=== PATIENT | female | born 1990 | race Caucasian/White ===

== ENCOUNTER 2023-05-18 16:28 | Outpatient (REF) | payer OTHER, SELFPAY ==
[2023-05-26 09:42] LABS: Codeine, Ur NEGATIVE; Hydrocodone, Ur NEGATIVE; Hydromorphone, Ur NEGATIVE; Morphine, Ur NEGATIVE; Norhydrocodone, Ur NEGATIVE; Noroxycodone, Ur NEGATIVE; Oxycodone, Ur NEGATIVE; Oxymorphone, Ur NEGATIVE
== END 2023-05-18 16:29 | disposition home or self-care (01) ==
LOC: HO.HHCLNP 16:28
PROVIDERS: Visit Provider Registered Nurse
DX: Z13.89 Encounter for screening for other disorder (principal)
CPT/HCPCS: 80346; 80365; G0480

== ENCOUNTER 2023-07-05 18:40 | Outpatient (REF) | payer OTHER, SELFPAY ==
[2023-07-05 19:16] LABS: Appearance Urine Clear; Color Urine Yellow; Glucose Urine UA Negative (Negative); Leukocyte Esterase Urine Moderate (2+) (Negative); Nitrite Urine Negative (Negative); PH 6.5 (5.0-9.0); UMIC TRIGGER UACC YES; Urine Blood Negative (Negative); Urine Ketones Negative (Negative); Urine Protein Negative (Neg-Trace)
[2023-07-05 19:45] LABS: Bacteria Urine None Seen (None Seen); Hyaline Casts Urine 0-2 /LPF (0-2); RBC Urine 0-2 /HPF (0-2); WBC Urine 0-5 /HPF (0-5)
[2023-07-07 21:34] LABS: C. trachomatis RNA TMA NOT DETECTED (NOT DETECTED); N. gonorrhoeae RNA TMA NOT DETECTED (NOT DETECTED)
== END 2023-07-05 18:41 | disposition home or self-care (01) ==
LOC: HO.HHCLNP 18:40
PROVIDERS: Visit Provider Registered Nurse
DX: R30.0 Dysuria (principal); N89.8 Other specified noninflammatory disorders of vagina
CPT/HCPCS: 36415; 81001; 81513; 87491; 87591

== ENCOUNTER 2023-08-24 11:13 | Outpatient (REF) | payer OTHER, SELFPAY ==
[2023-08-24 15:40] LABS: CT PCR DETECTED (Not Detect.); NG PCR NOT DETECTED (Not Detect.)
== END 2023-08-24 11:14 | disposition home or self-care (01) ==
LOC: HO.HHCL 11:13
PROVIDERS: Visit Provider Internal Medicine
DX: N89.8 Other specified noninflammatory disorders of vagina (principal); R82.90 Unspecified abnormal findings in urine
CPT/HCPCS: 0353U; 36415; 81513; 87086

== ENCOUNTER 2023-09-21 19:26 | Outpatient (REF) | payer OTHER, SELFPAY ==
[2023-09-22 09:26] LABS: BV Int Neg Control Negative (Negative); BV Int Pos Control Positive (Positive)
== END 2023-09-21 19:27 | disposition home or self-care (01) ==
LOC: HO.HHCLNP 19:26
PROVIDERS: Internal Medicine; Visit Provider Student in an Organized Health Care Education/Training Program
DX: N89.8 Other specified noninflammatory disorders of vagina (principal)
CPT/HCPCS: 87480; 87510; 87660

== ENCOUNTER 2023-11-20 15:43 | Outpatient (REF) | payer OTHER, SELFPAY ==
[2023-11-20 17:34] LABS: MANUAL DIFF FLAG NO
[2023-11-20 18:11] LABS: Basophils Percent Auto 0.3 % (0-2); Eosinophils Absolute Auto 0.1 X10*3/uL (0.0-0.4); Eosinophils Percent Auto 0.9 % (0-4); Hematocrit 35.4 % (37.0-47.0); Imm Gran Abs Auto 0.02 X10*3/uL (0.00-0.03); Imm Gran Pct Auto 0.2 % (0.0-0.4); Lymphocytes Absolute Auto 2.8 X10*3/uL (1.2-4.9); Mean Corpuscular HGB Conc 31.1 g/dl (31.0-35.0); Mean Corpuscular Hemoglobin 25.9 pg (27.0-33.0); Mean Corpuscular Volume 83.3 fL (80.0-98.0); Mean Platelet Volume 9.7 fL (9.4-12.3); Monocytes Absolute Auto 0.7 X10*3/uL (0.1-1.2); Monocytes Percent Auto 7.2 % (2-11); Neutrophils Absolute Auto 5.5 x10*3/uL (2.0-8.3); Neutrophils Percent Auto 60.4 % (45-73); Platelet Count 502 X10*3/uL (160-400); Red Blood Count 4.25 X10*6/uL (4.20-5.50); Red Cell Distribution Width 15.3 % (11.0-16.0); White Blood Count 9.1 X10*3/uL (4.8-10.8)
[2023-11-20 18:14] LABS: Alanine Aminotransferase 12 U/L (0-31); Albumin Level 4.4 g/dL (3.5-5.0); Alkaline Phosphatase 73 U/L (39-117); Anion Gap 11 (12-20); Aspartate Amino Transferase 15 U/L (5-31); Bilirubin Total 0.2 mg/dL (0.0-1.0); Blood Urea Nitrogen 10 mg/dL (9-16); Calcium 9.6 mg/dL (8.4-10.2); Carbon Dioxide 27 mmol/L (22-29); Chloride 105 mmol/L (96-108); Estimated Glomerular Filt Rate > 60; Glucose Random 91 mg/dL (60-115); Iron 14 mcg/dL (30-160); Percent Iron Saturation 4 % (15-50); Potassium 3.6 mmol/L (3.3-5.1); Sodium 139 mmol/L (135-145); Total Iron Binding Capacity 367 mcg/dL (228-428); Total Protein 8.1 g/dL (6.5-8.0); Unsaturated Iron Binding 353 ug/dL
[2023-11-20 18:29] LABS: Ferritin 11 ng/mL (10-122)
--- NOTE | 2023-11-23 11:30 | HE.ONCSEC ---
welcome letter sent
== END 2023-11-20 15:44 | disposition home or self-care (01) ==
LOC: HO.HHCL 15:43
PROVIDERS: Visit Provider Student in an Organized Health Care Education/Training Program
DX: I26.99 Other pulmonary embolism without acute cor pulmonale (principal); Z79.01 Long term (current) use of anticoagulants
CPT/HCPCS: 36415; 80053; 82728; 83540; 85025

== ENCOUNTER → 2023-12-22 09:09 | Outpatient (BNV) | payer OTHER, SELFPAY | PROVIDERS: PCP Student in an Organized Health Care Education/Training Program; Visit Provider Internal Medicine Medical Oncology | DX: I26.99 Other pulmonary embolism without acute cor pulmonale (principal); Z79.01 Long term (current) use of anticoagulants | CPT/HCPCS: 99202; 99204; 99213 ==

== ENCOUNTER → 2023-12-27 13:05 | Outpatient (REF) | payer OTHER, SELFPAY ==
--- NOTE | 2023-12-27 13:08 | CA_ITS ---
Transthoracic Echocardiogram Patient (Last, First, Middle): Radha Marcus M Gender: Female Date of : 1990 Age: 33 Procedure Date: 12/27/2023 Procedure Type: Transthoracic Echocardiogram Location: OP Height: 160.02 cm Weight: 72.58 kg BSA: 1.76 m2 Heart Rate: bpm BP: 106 / 62 mmHg Supervisor Personnel Clerks: KAVYA Referring MD: Fatmata Moran MD Symptoms: Pulmonary Embolism ,unspecified chronicity.. Study Quality: Fair ECG Rhythm: Sinus Conclusions: - The left ventricular systolic function is normal. The calculated ejection fraction is 61% by biplane method. - No obvious valvular pathology seen on this study. Findings Left Ventricle Normal left ventricular cavity size. There is normal left ventricular wall thickness. The left ventricular systolic function is normal. The calculated ejection fraction is 61% by biplane method. There is no evidence of regional wall motion abnormalities. Diastolic function is normal for age. LV peak GLS -19.4%. Right Ventricle Normal right ventricular cavity size and systolic function. Atria Both atria are normal in size. Aortic Valve There is a normal trileaflet aortic valve. There is no aortic valve stenosis. There is no aortic valve regurgitation. Mitral Valve The mitral valve appears normal. There is trace mitral valve regurgitation. There is no mitral valve stenosis. Pulmonic Valve The pulmonic valve is likely normal. Tricuspid Valve Normal tricuspid valve structure. There is trace tricuspid valve regurgitation. There is no evidence of pulmonary hypertension. Great Vessels The asc aorta and aortic arch are normal in size. Venous The inferior vena cava is normal in size and collapses greater than 50% with inspiration. Pericardium/Pleural There is no evidence of pericardial effusion. Prior Study Comparison No prior study available for comparison. Recommendations, Care & Conclusions No obvious valvular pathology seen on this study. Measurements 2D Linear Measurements IVSd: 0.63 0.6-0.9/0.6-1.0 cm LVIDd: 5.05 3.9-5.3/4.2-5.9 cm LVIDd Index: 2.87 2.4-3.2/2.2-3.1 cm/m2 LVIDs: 3.39 2.0-3.6 cm LVPWd: 0.68 0.7-1.1 cm LA Diam: 2.70 2.7-3.8/3.0-4.0 cm LAIDs Index: 1.53 1.5-2.3 cm/m2 LV Mass: 133.61 67-162/88-224 g LV Mass Index: 75.92 43-95/49-115 g/m2 LVOT Diam: 2.00 3.0+(-)1.3 cm 2D Systolic Function EF 4C: 60.20 >55% EF 2C: 61.80 >55% EF BiP: 61.30 >55% Mitral Valve MV Pk E: 0.95 MV PK A: 0.67 MV Decel Time: 262.00 E/A: 1.40 E'Lateral: 11.90 E'Medial: 10.30 E/E' Med: 9.20 E/E' Lat: 8.00 PHT: 77.00 MVA PHT: 2.86 Decel [place]: 3.63 Aortic Valve AoV Pk Lalo: 1.53 AoV Mn Lalo: 1.09 AoV VTI: 0.33 AoV Pk Grad: 9.00 Aov Mn Grad: 5.00 SHASHA Cont.VTI: 1.93 LVOT LVOT Pk Lalo: 0.93 LVOT Mn Lalo: 0.66 LVOT VTI: 0.21 LVOT Pk Grad: 3.00 LVOT Mn Grad: 2.00 LVOT Diam: 2.00 LVOT Area: 3.14 Diastolic Function MV Pk E: 0.95 MV Pk A: 0.67 E/A: 1.40 E'Medial: 10.30 E/E' Med: 9.20 E' Laterial: 11.90 E/E' Lat: 8.00 Right Ventricle TAPSE (mm): 25.60 TVS' Lalo: 13.80 Tricuspid Valve TR Pk Lalo: 1.75 TR Pk Grad: 12.00 RA Press: 3.00 RVSP: 15.00 Great Vessels Aorta Sinus of Valsalva: 2.73 2.0-3.[address] [place]: 1.84 1.7-3.4 cm Ao Asc: 2.30 2.1-3.4 cm Ao Arch: 2.20 Updated in Other Vendor System with Status of Final Waqar Powell MD electronically signed on 12/29/2023 2:29:43 PM with status of Final
== END ==
LOC: HO.CARD 13:05
PROVIDERS: PCP Student in an Organized Health Care Education/Training Program; Visit Provider Student in an Organized Health Care Education/Training Program
DX: I26.99 Other pulmonary embolism without acute cor pulmonale (principal)
CPT/HCPCS: 93306; 93356

== ENCOUNTER → 2023-12-27 13:08 | Outpatient (BNV) | payer OTHER, SELFPAY | PROVIDERS: PCP Student in an Organized Health Care Education/Training Program; Visit Provider Internal Medicine | DX: I26.99 Other pulmonary embolism without acute cor pulmonale (principal) | CPT/HCPCS: 93306; 93356 ==

== ENCOUNTER 2024-01-16 14:50 | Outpatient (REF) | payer OTHER, SELFPAY ==
[2024-01-19 10:47] LABS: Alphahydroxymidazolam,GCMS Ur NEGATIVE; Alphahydroxytriazolam, GCMS Ur NEGATIVE; Alprazolam, GCMS Urine NEGATIVE; Aminoclonazepam, GCMS Urine NEGATIVE; Flurazepam Metabolite,GCMS Ur NEGATIVE; Lorazepam GCMS Urine NEGATIVE; Nordiazepam, GCMS Urine NEGATIVE; Oxazepam, GCMS Urine NEGATIVE; Temazepam, GCMS Urine NEGATIVE
== END 2024-01-16 14:51 | disposition home or self-care (01) ==
LOC: HO.LNP 14:50
PROVIDERS: Visit Provider Student in an Organized Health Care Education/Training Program
DX: M25.561 Pain in right knee (principal); M25.562 Pain in left knee; G89.29 Other chronic pain
CPT/HCPCS: 80346

== ENCOUNTER 2024-04-08 10:13 | Outpatient (REF) | payer OTHER, SELFPAY ==
[2024-04-08 10:59] LABS: MANUAL DIFF FLAG NO
[2024-04-08 11:09] LABS: Basophils Percent Auto 0.6 % (0-2); Eosinophils Absolute Auto 0.1 X10*3/uL (0.0-0.4); Hematocrit 35.2 % (37.0-47.0); Hemoglobin 10.7 g/dl (12.0-16.0); Imm Gran Abs Auto 0.01 X10*3/uL (0.00-0.03); Imm Gran Pct Auto 0.2 % (0.0-0.4); Lymphocytes Absolute Auto 1.5 X10*3/uL (1.2-4.9); Lymphocytes Percent Auto 31.4 % (20-40); Mean Corpuscular HGB Conc 30.4 g/dl (31.0-35.0); Mean Corpuscular Hemoglobin 24.3 pg (27.0-33.0); Mean Corpuscular Volume 79.8 fL (80.0-98.0); Mean Platelet Volume 9.9 fL (9.4-12.3); Monocytes Absolute Auto 0.4 X10*3/uL (0.1-1.2); Monocytes Percent Auto 7.9 % (2-11); Neutrophils Absolute Auto 2.8 x10*3/uL (2.0-8.3); Neutrophils Percent Auto 58.9 % (45-73); Platelet Count 297 X10*3/uL (160-400); Red Blood Count 4.41 X10*6/uL (4.20-5.50); Red Cell Distribution Width 15.7 % (11.0-16.0); White Blood Count 4.8 X10*3/uL (4.8-10.8)
[2024-04-08 11:16] LABS: D Dimer High Sensitivity 197 NG/ML
[2024-04-08 11:19] LABS: Estimated Average Glucose 105 mg/dL; Hemoglobin A1c % 5.3 % (<6.0)
[2024-04-08 11:37] LABS: Syphilis Screen Nonreactive (Nonreactive)
[2024-04-08 11:43] LABS: HBS Num1 > 1000.00 mIU/mL (0-7.99); HBsAGNum1 0.24 S/CO (0.00-0.99); HIV AB/AG Nonreactive (Nonreactive); HIV Num 1 0.06 S/CO (0.00-0.99); Hepatitis B Core Antibody Nonreactive (Nonreactive); Hepatitis B Surface Antigen Negative (Negative); ~Hepatitis B Surface Antibody REACTIVE (Nonreactive); ~Hepatitis C Antibody Nonreactive (Nonreactive)
[2024-04-08 12:03] LABS: Alanine Aminotransferase 11 U/L (0-31); Albumin Level 4.4 g/dL (3.5-5.0); Alkaline Phosphatase 71 U/L (39-117); Anion Gap 12 (12-20); Aspartate Amino Transferase 15 U/L (5-31); Bilirubin Total 0.2 mg/dL (0.0-1.0); Blood Urea Nitrogen 12 mg/dL (9-16); Calcium 9.3 mg/dL (8.4-10.2); Carbon Dioxide 24 mmol/L (22-29); Chloride 107 mmol/L (96-108); Cholesterol 154 mg/dL (<200); Estimated Glomerular Filt Rate > 60; Glucose Random 88 mg/dL (60-115); HDL Cholesterol 44 mg/dL (>40); Iron 20 mcg/dL (30-160); LDL Cholesterol Calculated 99 mg/dL (<100); Percent Iron Saturation 5 % (15-50); Potassium 3.9 mmol/L (3.3-5.1); Sodium 139 mmol/L (135-145); Total Iron Binding Capacity 368 mcg/dL (228-428); Total Protein 7.7 g/dL (6.5-8.0); Triglycerides 56 mg/dL (<150); Unsaturated Iron Binding 348 ug/dL
[2024-04-08 12:26] LABS: Ferritin 6 ng/mL (10-122); TSH reflex Free T4 0.77 uIU/mL (0.32-4.0)
[2024-04-08 13:14] LABS: CT PCR NOT DETECTED (Not Detect.); NG PCR NOT DETECTED (Not Detect.)
== END 2024-04-08 10:14 | disposition home or self-care (01) ==
LOC: HO.HHCL 10:13
PROVIDERS: Internal Medicine Medical Oncology; Visit Provider Student in an Organized Health Care Education/Training Program
DX: Z00.00 Encounter for general adult medical examination without abnormal findings (principal); I26.99 Other pulmonary embolism without acute cor pulmonale; Z13.1 Encounter for screening for diabetes mellitus
CPT/HCPCS: 36415; 80053; 80061; 82728; 83036; 83540; 84443; 85025; 85027; 85379; 86704; 86706; 86780; 86803; 87340; 87389; 87491; 87591

== ENCOUNTER 2024-04-10 09:46 | Outpatient (REF) | payer OTHER, SELFPAY ==
--- NOTE | ~2024-04-10 | XR_ITS ---
EXAMINATION: XR KNEE RIGHT XR KNEE LEFT CLINICAL INFORMATION: Chronic bilateral knee pain COMPARISON: None TECHNIQUE: Right knee, 3 views Left knee, 3 views FINDINGS: Left knee: Bones, joints and soft tissues have a normal appearance. No fracture, subluxation or joint effusion. Right knee: Bones, joints and soft tissues have a normal appearance. No fracture, subluxation or joint effusion. XR/XR knee RT 3V IMPRESSION: Normal radiographic examination of each knee.
--- NOTE | ~2024-04-10 | XR_ITS ---
EXAMINATION: XR KNEE RIGHT XR KNEE LEFT CLINICAL INFORMATION: Chronic bilateral knee pain COMPARISON: None TECHNIQUE: Right knee, 3 views Left knee, 3 views FINDINGS: Left knee: Bones, joints and soft tissues have a normal appearance. No fracture, subluxation or joint effusion. Right knee: Bones, joints and soft tissues have a normal appearance. No fracture, subluxation or joint effusion. XR/XR knee LT 3V IMPRESSION: Normal radiographic examination of each knee.
== END 2024-04-10 09:47 | disposition home or self-care (01) ==
LOC: HO.HHCX 09:46
PROVIDERS: Visit Provider Student in an Organized Health Care Education/Training Program
DX: M25.562 Pain in left knee (principal); M25.561 Pain in right knee; G89.29 Other chronic pain
CPT/HCPCS: 73562

== ENCOUNTER 2024-11-28 17:52 | Outpatient (REF) | payer OTHER, SELFPAY ==
--- OUTSIDE RECORDS SUMMARY | 2024-11-28 17:54 | XMS_ITS | Encounter Summary ---
Author Organization [employer] Address [address] [place] [address] [place] [address] Care Team Providers Care Railroad Track Mechanic Name Role Phone Anastasiya Garcia Kim BUSINESS RISK CONSULTANT Primary Care Provider +1- [phone] Fatmata Nance MD Primary Care Pro vider Jordon Rausch BUSINESS RISK CONSULTANT Unavailable Unavailable Encounter Details Date Type Department Care Team (Latest Contact Info) Description 01/07/2019 Abstract [facility] CONVERSIONS Dental, Provider, DDS Social History Tobacco Use Types Packs/Day Years Used Date Smoking Tobacco: Never Assessed Comments Unknown Sex and Gender Information Value Date Recorded Sex Assigned at Female 06/27/2022 10:18 AM EDT Legal Sex Female 10:18 AM EDT Gender Identity Female 06/27/2022 10:18 AM EDT Sexual Orientation Choose not to disclose 2021 10:18 AM EDT documented as of this encounter Plan of Treatment Upcoming Encounters Date Type Department Care Team (Late st Contact Info) Description 02/20/2025 9:00 AM EDT Office Visit [facility] MEDICINE [address] [place] [address] Fatmata Nance MD [address] [place] [address] 02/27/2025 9:00 AM EDT Clinical Support [facility] CHC MED & PEDS [address] [place] [address] Jil Rousseau, RN [address] [place] [address] 05/15/2025 1:00 PM EDT Office Visit [facility] ADULT DENTAL [address] [place] [address] Edith Hammer documented as of this encounter Visit Diagnoses Not on filedocumented in this encounter Care Teams Railroad Track Mechanic Relationship Specialty Start Date End Date Anastasiya Garcia FNP PCP - General Family Medicine 04/26/22 05/28/23 Fatmata Nance MD [address] [place] [address] PCP - General Internal Medicine 05/29/23 Jordon Rausch FNP [address] [place] [address] Nurse Practitioner Family Medicine 08/01/23 documented as of this encounter
--- OUTSIDE RECORDS SUMMARY | 2024-11-28 17:54 | XMS_ITS | Encounter Summary ---
Author Organization [employer] Address [address] [facility] 7t [place] [address] Care Team Providers Care Manhole Stripper Name Role Phone Fatmata Nance MD Primary Care Pro vider Jordon Rausch Unavailable Unavailable Reason for Visit * Reason Comments Med Refill Encounter Details Date Type Department Care Team (Late st Contact Info) Description 01/03/2024 Refill [facility] MEDICINE [address] [place] [address] Jordon Rausch FNP Posttraumatic stress disorder Social History Tobacco Use Types Packs/Day Years Used Date Smoking Tobacco: Never Passive Smoke Exposure: Never Smokeless Tobacco: Never Alcohol Use Standard Drinks/Week Comments Not Currently 0 (1 standard drink = 0.6 oz pur e alcohol) Quit Depression Answer Date Recorded Patient Health Questionnaire-9 Score 4 11/23/2023 Patient Health Questionnaire-9 Score 4 11/23/2023 Last PHQ-9: Questionnaire Data Not on file 0 11/23/2023 Housing Stability Answer Date Recorded What is your housing situation today? I have logan hensley 11/07/[address] you li ve. Do you have problems with any of the following? None of the above 11/07/2023 Food Insecurity Answer Date Recorded Within the past 12 months, y ou worried that your food would run out before you got money to buy more: Never True 11/07/2023 Within the past 12 months,th e food you bought just didn't last and you didn't have enough money to get more: Never True 07/2024 Transportation Answer Date Recorded In the past 12 months, has l ack of transportation kept you from medical appts, meetings, work or from getting things needed for daily living? No 11/07/2023 Utilities Answer Date Recorded In the past 12 months, has t he electric, gas, oil or water company threatened to shut off services in your home? No 11/07/2023 Depression Answer Date Recorded Patient Health Questionnaire-2 Score 2 11/23/2023 Comments No Sex and Gender Information Value Date Recorded [...] Description 02/20/2025 9:00 AM EDT Office Visit [facility] MEDICINE [address] [place] [address] Fatmata Nance MD [address] [place] [address] 02/27/2025 9:00 AM EDT Clinical Support [facility] CHC MED & PEDS [address] [place], [place] [phone] Jil Rousseau, RN [address] [place], [place] [phone] 05/15/2025 1:00 PM EDT Office Visit [facility] ADULT DENTAL [address] [place] [address] Edith Hammer documented as of this encounter Visit Diagnoses Diagnosis Posttraumatic stress disorder documented in this encounter Additional Health Concerns Assessment Noted Time PHQ-9 Depression Total Score: 4 11/23/19 24 3:03 PM EDT documented as of this encounter Care Teams Manhole Stripper Relationship Specialty Start Date End Date Fatmata Nance MD [address] [place] [address] PCP - General Internal Medicine 05/29/23 Jordon Rausch FNP [address] [place] [address] Nurse Practitioner Family Medicine 08/01/23 documented as of this encounter
--- OUTSIDE RECORDS SUMMARY | 2024-11-28 17:54 | XMS_ITS | Encounter Summary ---
Author Organization [employer] Address [address] [facility] 7t [place] [address] Care Team Providers Care Ground Mixer Name Role Phone Fatmata Nance MD Primary Care Pro vider Jordon Rausch Unavailable Unavailable Reason for Visit * Reason Comments Med Refill Encounter Details Date Type Department Care Team (Late st Contact Info) Description 04/07/2024 Refill [facility] MEDICINE [address] [place] [address] Jordon Rausch FNP Posttraumatic stress disorder Social History Tobacco Use Types Packs/Day Years Used Date Smoking Tobacco: Never Passive Smoke Exposure: Never Smokeless Tobacco: Never Alcohol Use Standard Drinks/Week Comments Yes 0 (1 standard drink = 0.6 oz pur e alcohol) social Depression Answer Date Recorded Patient Health Questionnaire-9 Score 0 01/18/2024 Patient Health Questionnaire-9 Score 0 01/18/2024 Last PHQ-9: Questionnaire Data Not on file 0 01/18/2024 Housing Stability Answer Date Recorded What is [...] Answer Date Recorded Patient Health Questionnaire-2 Score 0 01/18/2024 Comments No Sex and Gender Information Value [...] Description 02/20/2025 9:00 AM EDT Office Visit [facility] MEDICINE [address] [place] [address] Fatmata Nance MD [address] [place] [address] 02/27/2025 9:00 AM EDT Clinical Support [facility] CHC MED & PEDS [address] [place], [place] [phone] Jil Rousseau, RN [address] [place], [place] [phone] 05/15/2025 1:00 PM EDT Office Visit [facility] ADULT DENTAL [address] [place] [address] Edith Hammer documented as of this encounter Visit Diagnoses Diagnosis Posttraumatic stress disorder documented in this encounter Additional Health Concerns Assessment Noted Time PHQ-9 Depression Total Score: 0 01/18/20 24 3:43 PM EDT documented as of this encounter Care Teams Ground Mixer Relationship Specialty Start Date End Date Fatmata Nance MD [address] [place] [address] PCP - General Internal Medicine 05/29/23 Jordon Rausch FNP [address] [place] [address] Nurse Practitioner Family Medicine 08/01/23 documented as of this encounter
--- OUTSIDE RECORDS SUMMARY | 2024-11-28 17:54 | XMS_ITS | Encounter Summary ---
Author Organization [employer] Address [address] [facility] 7t [place] [address] Care Team Providers Care Utility Worker Woolen Mill Name Role Phone Fatmata Nance MD Primary Care Pro vider Jordon Rausch Unavailable Unavailable Encounter Details Date Type Department Care Team (Latest Contact Info) Description 11/28/2024 Travel Social History Tobacco Use Types Packs/Day Years [...] Description 02/20/2025 9:00 AM EDT Office Visit [facility] MEDICINE [address] [place] [address] Fatmata Nance MD [address] [place] [address] 02/27/2025 9:00 AM EDT Clinical Support [facility] CHC MED & PEDS 505 [place], [place] [phone] Jil Rousseau, SHARMIN 505 [place] [address] 05/15/2025 1:00 PM EDT Office Visit [facility] ADULT DENTAL [address] [place] [address] Edith Hammer documented as of this encounter Visit Diagnoses Not on filedocumented in this encounter Additional Health Concerns Assessment Noted Time PHQ-9 Depression Total Score: 0 01/18/20 24 3:43 PM EDT documented as of this encounter Care Teams Utility Worker [place] [place] Relationship Specialty Start Date End Date Fatmata Nance MD [address] [place] [address] PCP - General Internal Medicine 05/29/23 Jordon Rausch FNP [address] [place] [address] Nurse Practitioner Family Medicine 08/01/23 documented as of this encounter
--- OUTSIDE RECORDS SUMMARY | 2024-11-28 17:54 | XMS_ITS | Encounter Summary ---
Author Organization [employer] Address [address] [facility] 7t [place] [address] Care Team Providers Care It Communications Manager Name Role Phone Fatmata Nance MD Primary Care Pro vider Jordon Rausch Unavailable Unavailable Reason for Visit * Reason Comments controlled substance treatment Encounter Details Date Type Department Care Team (Latest Contact Info) Description 11/28/2024 9:30 AM EDT Clinical Support [facility] MED & PEDS [address] [place] [address] Jil Rousseau, RN [address] [place] [address] Chronic pain of both knees (Primary Dx); Long-term current use of opiate analgesic Social History Tobacco Use Types Packs/Day Years [...] your housing situation today? 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 Prescribed Tramadol 50mg Q8hr PRN & Clonazepam 1mg BID PRN. States she takes both medications only as needed. Usually takes Clonazepam at bedtime, last taken last night. Continues to deny smoking cigarettes, ETOH use and Illicit drug use. States she smokes marijuana all day - everyday and uses it for its calming effects. Denies having a medical marijuana card. Currently rates her pain a 4/10 located in bilateral knees and states medication is usually 70% effective at alleviating pain. Last PCP appt 07/11/24. Patient was f/u with Whit Rausch regularly and declines any further referrals, referred to new [facility] psych. prescriber as Jordon carrera. No questions/ concerns at this time. PASSENGER SERVICE SUPERVISOR Agreement renewed today. O: Pt currently prescribed Tramadol 50mg Q8hr PRN & Clonazepam 1mg BID PRN. IRON INSTALLER verified today.Tramadol Rx last filled on 11/25/24. Pill count performed, patient has 78, 74 expected. Clonazepam Rx last filled on 11/25/24. Pill count performed, Pt has 57 pills at this time, 53 expected. Medication is not overused by patient. UTOX completed. Positive for THC only. Sending out BZO to the lab for c onfirmation. .BPI updated today. Pain severity score of (3.5), activity interference score of (4). Previous BPI completed (04/03/24) with pain severity score of (5), activity interference score of (5).Improvement in pain management. .CARLY 7 screening done, total score 11; patient educated of ways to help deal with anxiety, also acupuncture at [facility]. A: PASSENGER SERVICE SUPERVISOR Contract Revisit: Chronic Opioid use related to pain. P: Pt to continue taking medication only as prescribed; Next PASSENGER SERVICE SUPERVISOR RV appointment scheduled for 02/27/25 @ 9am. PE with PCP 02/20/25. F/U sooner PRN. Pt verbalized understanding and agreed to plan documented in this encounter Plan of Treatment Upcoming Encounters Date Type Department Care Team (Late st Contact Info) Description 02/20/2025 9:00 AM EDT Office Visit [facility] MEDICINE [address] [place] [address] Fatmata Nance MD [address] [place] [address] 02/27/2025 9:00 AM EDT Clinical Support [facility] CHC MED & PEDS [address] [place], [place] [phone] Jil Rousseau, RN [address] [place] [address] 05/15/2025 1:00 PM EDT Office Visit [facility] ADULT DENTAL [address] [place] [address] Edith Hammer Scheduled Orders Name Type Priority Associated Diagnoses Orde r Schedule Drug Monitoring, Benzodiazepines, Quantitative, Urine Lab Routine Chronic pain of both knees Ordered: 11/28/2024 documented as of this encounter Procedures Procedure Name Priority Date/Time Associated Diagnosis Comments POCT ASH-14 URINE DRUG SCREEN Routine 11/28/2024 9:32 AM EDT Long-term current use of opiate analgesic Chronic pain of both knees documented in this encounter Results * POCT ASH-14 Urine Drug Screen (11/28/2024 9:32 AM EDT) THC Positive Urine Urine specimen obtained by clean catch procedure / Unknown 11/28/2024 9:32 AM EDT Narrative Jil Rousseau, RN - 11/28/2024 9:32 AM EDT Lot# [id number] Exp: 04-16-26 Fatmata Moran MD POINT OF CARE JAMES T ENTER/EDIT ORDERABLES Final Result documented in this encounter Visit Diagnoses Diagnosis Chronic pain of both knees- Primary Long-term current use of opiate analgesic Encounter for long-term (current) use of other medications documented in this encounter Additional Health Concerns Assessment Noted Time PHQ-9 Depression Total Score: 0 01/18/20 24 3:43 PM EDT documented as of this encounter Care Teams It Communications Manager Relationship Specialty Start Date End Date Fatmata Nance MD [address] [place] [address] PCP - General Internal Medicine 05/29/23 Jordon Rausch FNP [address] [place] [address] Nurse Practitioner Family Medicine 08/01/23 documented as of this encounter
--- OUTSIDE RECORDS SUMMARY | 2024-11-28 17:54 | XMS_ITS | Encounter Summary ---
Author Organization [employer] Address [address] [place] [address] [place] [address] Care Team Providers Care Maintenance Tech Name Role Phone Anastasiya Garcia Kim ASIC DESIGN ENGINEER Primary Care Provider +1- [phone] Fatmata Nance MD Primary Care Pro vider Jordon Rausch ASIC DESIGN ENGINEER Unavailable Unavailable Encounter Details Date Type Department Care Team (Latest Contact Info) Description 11/04/2021 Abstract [facility] CONVERSIONS Dental, Provider, DDS Social History [...] Description 02/20/2025 9:00 AM EDT Office Visit [facility] MEDICINE [address] [place] [address] Fatmata Nance MD [address] [place] [address] 02/27/2025 9:00 AM EDT Clinical Support [facility] CHC MED & PEDS [address] [place] [address] Jil Rousseau, RN [address] [place] [address] 05/15/2025 1:00 PM EDT Office Visit [facility] ADULT DENTAL [address] [place] [address] Edith Hammer documented as of this encounter Visit Diagnoses Not on filedocumented in this encounter Care Teams Maintenance Tech Relationship Specialty Start Date End Date Anastasiya Garcia FNP PCP - General Family Medicine 04/26/22 05/28/23 Fatmata Nance MD [address] [place] [address] PCP - General Internal Medicine 05/29/23 Jordon Rausch FNP [address] [place] [address] Nurse Practitioner Family Medicine 08/01/23 documented as of this encounter
--- OUTSIDE RECORDS SUMMARY | 2024-11-28 17:54 | XMS_ITS | Encounter Summary ---
Author Organization [employer] Address [address] [facility] 7t [place] [address] Care Team Providers Care Varnish Melter Helper Name Role Phone Fatmata Nance MD Primary Care Pro vider Jordon Rausch Unavailable Unavailable Encounter Details Date Type Department Care Team ([facility] st Contact Info) Description 11/28/2024 Telephone [facility] CHC MED & PEDS [address] [place] [address] Jil Rousseau, SHARMIN [address] [place] [address] Social History Tobacco Use Types Packs/Day Years [...] AM EDT documented as of this encounter Miscellaneous Notes * Telephone Encounter - Jil Rousseau RN - 11/28/2024 9:30 AM EDT .What SUGAR GRINDER Tier would you like this patient to be? Tier 1 = HIGH RISK, Monthly SUGAR GRINDER visits Tier 2 = MODerate RISK, Q3 Month visits Tier 3 = LOW RISK = Q4-6 month visits documented in this encounter Plan of Treatment Upcoming Encounters Date Type Department Care Team (Late st Contact Info) Description 02/20/2025 9:00 AM EDT Office Visit [facility] MEDICINE [address] [place] [address] Fatmata Nance MD [address] [place] [address] 02/27/2025 9:00 AM EDT Clinical Support [facility] CHC MED & PEDS [address] [place] [address] Jil Rousseau RN [address] [place] [address] 05/15/2025 1:00 PM EDT Office Visit [facility] ADULT DENTAL [address] [place] [address] Edith Hammer documented as of this encounter Visit Diagnoses Not on filedocumented in this encounter Additional Health Concerns Assessment Noted Time PHQ-9 Depression Total Score: 0 01/18/20 24 3:43 PM EDT documented as of this encounter Care Teams Varnish Melter Helper Relationship Specialty Start Date End Date Fatmata Nance MD [address] [place] [address] PCP - General Internal Medicine 05/29/23 Jordon Rausch FNP [address] [place] [address] Nurse Practitioner Family Medicine 08/01/23 documented as of this encounter
--- OUTSIDE RECORDS SUMMARY | 2024-11-28 17:54 | XMS_ITS | Encounter Summary ---
Author Organization [employer] Address [address] [facility] 7t [place] [address] Care Team Providers Care Lube Man Name Role Phone Fatmata Nance MD Primary Care Pro vider Jordon Rausch Unavailable Unavailable Reason for Visit * Reason Comments Med Refill Encounter Details Date Type Department Care Team (Late st Contact Info) Description 10/17/2024 Refill [facility] CH[facility] MED & PEDS [address] [place] [address] Abbi Stockton, ANP [address] [place] [address] Pain in right knee Social History Tobacco Use Types Packs/Day Years [...] Description 02/20/2025 9:00 AM EDT Office Visit [facility] MEDICINE [address] [place] [address] Fatmata Nance MD [address] [place] [address] 02/27/2025 9:00 AM EDT Clinical Support [facility] CHC MED & PEDS [address] [place] [address] Jil Rousseau, SHARMIN [address] [place] [address] 05/15/2025 1:00 PM EDT Office Visit [facility] ADULT DENTAL [address] [place] [address] Edith Hammer documented as of this encounter Visit Diagnoses Diagnosis Pain in right knee documented in this encounter Additional Health Concerns Assessment Noted Time PHQ-9 Depression Total Score: 0 01/18/20 24 3:43 PM EDT documented as of this encounter Care Teams Lube Man Relationship Specialty Start Date End Date Fatmata Nance MD [address] [place] [address] PCP - General Internal Medicine 05/29/23 Jordon Rausch FNP [address] [place] [address] Nurse Practitioner Family Medicine 08/01/23 documented as of this encounter
--- OUTSIDE RECORDS SUMMARY | 2024-11-28 17:54 | XMS_ITS | Encounter Summary ---
Author Organization [employer] Address [address] [place] [id number] Care Team Providers Care Form Drafter Name Role Phone Fatmata Nance MD Primary Care Pro vider Jordon Rausch Unavailable Unavailable Reason for Visit * Reason Onset Date Comments REVISING CLERK visit 06/13/2024 Encounter Details Date Type Department Care Team (Late st Contact Info) Description 06/13/2024 Telephone [facility] MEDICINE [address] [place], [place] [phone] Fatmata Nance MD [address] [place] [address] REVISING CLERK visit Social History Tobacco Use Types Packs/Day Years [...] is your housing situation today? I have logankathryn hensley 11/07/[address] you [...] encounter Miscellaneous Notes * Telephone Encounter - Ryan Morris - 06/13/2024 12:08 PM EDT TC from pt had to cancel REVISING CLERK visit scheduled on 06/19 because currently working and falls on . Pt would like to reschedule for either a Monday or documented in this encounter Plan of Treatment Upcoming Encounters Date Type Department Care Team (Late st Contact Info) Description 02/20/2025 9:00 AM EDT Office Visit [facility] MEDICINE [address] [place] [address] Fatmata Nance MD [address] [place] [address] 02/27/2025 9:00 AM EDT Clinical Support [facility] CHC MED & PEDS [address] [place] [address] Jil Rousseau, SHARMIN [address] [place] [address] 05/15/2025 1:00 PM EDT Office Visit [facility] ADULT DENTAL [address] [place] [address] Edith Hammer documented as of this encounter Visit Diagnoses Not on filedocumented in this encounter Additional Health Concerns Assessment Noted Time PHQ-9 Depression Total Score: 0 01/18/20 24 3:43 PM EDT documented as of this encounter Care Teams Form Drafter Relationship Specialty Start Date End Date Fatmata Nance MD [address] [place] [address] PCP - General Internal Medicine 05/29/23 Jordon Rausch FNP [address] [place] [address] Nurse Practitioner Family Medicine 08/01/23 documented as of this encounter
--- OUTSIDE RECORDS SUMMARY | 2024-11-28 17:54 | XMS_ITS | Encounter Summary ---
Author Organization [employer] Address [address] [place] [address] [place] [address] Care Team Providers Care Government Contracts Manager Name Role Phone Anastasiya Garcia Kim RADIOLOGY PHYSICIAN Primary Care Provider [phone] Fatmata Nance MD Primary Care Pro vider Jordon Rausch RADIOLOGY PHYSICIAN Unavailable Unavailable Encounter Details Date Type Department Care Team (Latest Contact Info) Description 06/05/2020 Abstract [facility] CONVERSIONS Dental, Provider, DDS Social [...] Description 02/20/2025 9:00 AM EDT Office Visit [facility] MEDICINE [address] [place] [address] Fatmata Nance MD [address] [place] [address] 02/27/2025 9:00 AM EDT Clinical Support [facility] CHC MED & PEDS [address] [place] [address] Jil Rousseau, RN [address] [place] [address] 05/15/2025 1:00 PM EDT Office Visit [facility] ADULT DENTAL [address] [place] [address] Edith Hammer documented as of this encounter Visit Diagnoses Not on filedocumented in this encounter Care Teams Government Contracts Manager Relationship Specialty Start Date End Date Anastasiya Garcia FNP PCP - General Family Medicine 04/26/22 05/28/23 Fatmata Nance MD [address] [place] [address] PCP - General Internal Medicine 05/29/23 Jordon Rausch FNP [address] [place] [address] Nurse Practitioner Family Medicine 08/01/23 documented as of this encounter
--- OUTSIDE RECORDS SUMMARY | 2024-11-28 17:55 | XMS_ITS | Encounter Summary ---
Author Organization [email or web address] Address [address] [place] [address] Care Team Providers Care Official Court Interpreter Name Role Phone Fatmata Nance MD Primary Care Pro vider Jordon Rausch Unavailable Unavailable Reason for Visit * Reason Onset Date Comments Med Refill 07/03/2023 Encounter Details Date Type Department Care Team (Late st Contact Info) Description 07/03/2023 Telephone [facility] MEDICINE [address] [place], [place] [phone] Fatmata Nance MD [address] [place], [place] [phone] Med Refill Social History Tobacco Use Types Packs/Day Years Used Date Smoking Tobacco: Never Passive Smoke Exposure: Never Smokeless Tobacco: Never Alcohol Use Standard Drinks/Week Comments Not Currently 0 (1 standard drink = 0.6 oz pur e alcohol) Quit Depression Answer Date Recorded Patient Health Questionnaire-9 Score 1 05/23/2023 Depression Answer Date Recorded Patient Health Questionnaire-2 Score 1 05/23/2023 Comments Unknown Sex and Gender Information Value Date Recorded Sex Assigned at Female 06/27/2022 10:18 AM EDT Legal Sex Female 10:18 AM EDT Gender Identity Female 06/27/2022 10:18 AM EDT Sexual Orientation Choose not to disclose 2021 10:18 AM EDT documented as of this encounter Miscellaneous Notes * Telephone Encounter - Mere Loco - 07/03/2023 9:29 AM EST Tc from pt requesting med refill on; traMADol (Ultram) 50 MG tablet documented in this encounter Plan of Treatment Upcoming Encounters Date Type Department Care Team (Late st Contact Info) Description 02/20/2025 9:00 AM EDT Office Visit [facility] MED[facility]INE [address] [place] [address] Fatmata Nance MD [address] [place] [address] 02/27/2025 9:00 AM EDT Clinical Support [facility] CH[facility] MED & PEDS [address] [place], [place] [phone] Jil Rousseau, SHARMIN [address] [place], [place] [phone] 05/15/2025 1:00 PM EDT Office Visit [facility] ADULT DENTAL [address] [place] [address] Edith Hammer documented as of this encounter Visit Diagnoses Not on filedocumented in this encounter Additional Health Concerns Assessment Noted Time PHQ-9 Depression Total Score: 1 05/23/20 23 8:59 AM EDT documented as of this encounter Care Teams Official Court Interpreter Relationship Specialty Start Date End Date Fatmata Nance MD [address] [place] [address] PCP - General Internal Medicine 05/29/23 Jordon Rausch FNP [address] [place] [address] Nurse Practitioner Family Medicine 08/01/23 documented as of this encounter
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
--- OUTSIDE RECORDS SUMMARY | 2024-11-28 17:55 | XMS_ITS | Encounter Summary ---
Author Organization [employer] Address [address] [facility] 7 [place] [address] Care Team Providers Care Internet Marketer Name Role Phone Anastasiya Garcia Primary Care Provider +1- [phone] Fatmata Nance MD Primary Care Pro vider Jordon Rausch Unavailable Unavailable Reason for Visit * Reason Onset Date Comments Med Refill 05/02/2023 Encounter Details Date Type Department Care Team (Late st Contact Info) Description 05/02/2023 Telephone [facility] MED[facility]INE [address] [place] [address] Anastasiya Garcia FNP [address] [place] [address] Dept [place] [address] Med Refill Social History Tobacco Use Types Packs/Day Years Used Date Smoking Tobacco: Never Passive Smoke Exposure: Never Smokeless Tobacco: Never Alcohol Use Standard Drinks/Week Comments Not Currently 0 (1 standard drink = 0.6 oz pur e alcohol) Quit Comments Unknown Sex and Gender Information Value Date Recorded Sex Assigned at Female 06/27/2022 10:18 AM EDT Legal Sex Female 10:18 AM EDT Gender Identity Female 06/27/2022 10:18 AM EDT Sexual Orientation Choose not to disclose 2021 10:18 AM EDT documented as of this encounter Miscellaneous Notes * Telephone Encounter - Megan Hernandez LPN - 05/02/2023 12:58 PM EDT Medication was sent to [facility] on 11/22/22 #90 with 1 refill to [facility] for refill. * Telephone Encounter - Nichole Garrett - 05/02/2023 11:59 AM EDT TC from pt requesting med refill for mediation lurasidone (Latuda) 60 MG tablet. documented in this encounter Plan of Treatment Upcoming Encounters Date Type Department Care Team (Late st Contact Info) Description 02/20/2025 9:00 AM EDT Office Visit [facility] MEDICINE [address] [place] [address] Fatmata Nance MD [address] [place] [address] 02/27/2025 9:00 AM EDT Clinical Support [facility] MED & PEDS [address] [place], [place] [id number] Jil Rousseau, SHARMIN [address] [place] [address] 05/15/2025 1:00 PM EDT Office Visit [facility] ADULT DENTAL [address] [place] [address] Edith Hammer documented as of this encounter Visit Diagnoses Not on filedocumented in this encounter Additional Health Concerns Assessment Noted Time PHQ-9 Depression Total Score: 2 02/22/20 23 8:58 AM EDT documented as of this encounter Care Teams Internet Marketer Relationship Specialty Start Date End Date Anastasiya Garcia FNP PCP - General Family Medicine 04/26/22 05/28/23 Fatmata Nance MD [address] [place] [id number] PCP - General Internal Medicine 05/29/23 Jordon Rausch FNP [address] [place] [id number] Nurse Practitioner Family Medicine 08/01/23 documented as of this encounter
--- OUTSIDE RECORDS SUMMARY | 2024-11-28 17:55 | XMS_ITS | Encounter Summary ---
Author Organization [employer] Address [address] [facility] 7 [place] [address] Care Team Providers Care Shop Helper Name Role Phone Anastasiya Garcia Primary Care Provider +1- [phone] Fatmata Nance MD Primary Care Pro vider Jordon Rausch Unavailable Unavailable Reason for Visit * Reason Onset Date Comments Med Refill 10/24/2022 Encounter Details Date Type Department Care Team (Late st Contact Info) Description 10/24/2022 Telephone [facility] MEDICINE [address] [place] [address] Anastasiya Garcia FNP [address] [facility] Dept [place] [address] Med Refill Social History Tobacco Use Types Packs/Day Years Used Date Smoking Tobacco: Never Smokeless Tobacco: Never Alcohol Use Standard Drinks/Week Comments Not Currently 0 (1 standard drink = 0.6 oz pur e alcohol) Quit Comments Unknown Sex and Gender Information Value Date Recorded Sex Assigned at Female 06/27/2022 10:18 AM EDT Legal Sex Female 10:18 AM EDT Gender Identity Female 06/27/2022 10:18 AM EDT Sexual Orientation Choose not to disclose 2021 10:18 AM EDT COVID-19 Exposure Response Date Recorded In the last 10 days, have yo u been in contact with someone who was confirmed or suspected to have Coronavirus/COVID-19? No / Unsure 10/26/2022 9:22 AM EST documented as of this encounter Miscellaneous Notes * Telephone Encounter - Megan Hernandez LPN - 10/24/2022 12:02 PM EST Both medications were sent to [facility] on 08/23/22 Qty: 30 with 5 refills * Telephone Encounter - Nichole Rosa - 10/24/2022 11:06 AM EST Tc from pt requesting med refill for medication lurasidone (Latuda) 60 MG tablet hydrOXYzine HCl (Atarax) 50 MG tablet documented in this encounter Plan of Treatment Upcoming Encounters Date Type Department Care Team (Late st Contact Info) Description 02/20/2025 9:00 AM EDT Office Visit [facility] MEDICINE [address] [place] [address] Fatmata Nance MD [address] [place] [address] 02/27/2025 9:00 AM EDT Clinical Support [facility] MED & PEDS [address] [place] [address] Jil Rousseau, RN [address] [place] [address] 05/15/2025 1:00 PM EDT Office Visit [facility] ADULT DENTAL [address] [place] [address] Edith Hammer documented as of this encounter Visit Diagnoses Not on filedocumented in this encounter Additional Health Concerns Assessment Noted Time PHQ-9 Depression Total Score: 4 08/23/20 22 2:48 PM EST documented as of this encounter Care Teams Shop Helper Relationship Specialty Start Date End Date Anastasiya Garcia FNP PCP - General Family Medicine 04/26/22 05/28/23 Fatmata Nance MD [address] [place] [id number] PCP - General Internal Medicine 05/29/23 Jordon Rausch FNP [address] [place] [phone] Nurse Practitioner Family Medicine 08/01/23 documented as of this encounter
--- OUTSIDE RECORDS SUMMARY | 2024-11-28 17:55 | XMS_ITS | Encounter Summary ---
Author Organization [employer] Address [address] [place] [id number] Care Team Providers Care Supervisor Pairing And Inspecting Name Role Phone Fatmata Nance MD Primary Care Pro vider Erlinda Rausch Unavailable Unavailable Reason for Visit * Reason Onset Date Comments FYI 09/13/2023 Encounter Details Date Type Department Care Team (Late st Contact Info) Description 09/13/2023 Telephone [facility] MEDICINE [address] [place], [place] [phone] Fatmata Nance MD [address] [place] [address] FYI Social History Tobacco Use Types Packs/Day Years Used Date Smoking Tobacco: Never Passive Smoke Exposure: Never Smokeless Tobacco: Never Alcohol Use Standard Drinks/Week Comments Not Currently 0 (1 standard drink = 0.6 oz pur e alcohol) Quit Depression Answer Date Recorded Patient Health Questionnaire-9 Score 4 08/24/2023 Patient Health Questionnaire-9 Score 4 08/24/2023 Last PHQ-9: Questionnaire Data Not on file 1 10/25/2022 Depression Answer Date Recorded Patient Health Questionnaire-2 Score 1 08/24/2023 Comments Unknown Sex and Gender Information Value Date Recorded Sex Assigned at Female 06/27/2022 10:18 AM EDT Legal Sex Female 10:18 AM EDT Gender Identity Female 06/27/2022 10:18 AM EDT Sexual Orientation Choose not to disclose 2021 10:18 AM EDT documented as of this encounter Miscellaneous Notes * Telephone Encounter - Madhavi Zambrano - 09/13/2023 9:52 AM EST Tc from pt states erlinda edie will be leaving soon and pt would like PCP aware for pt can still receive medication prescribed by edie. Pt does need a TP. documented in this encounter Plan of Treatment Upcoming Encounters Date Type Department Care Team (Late st Contact Info) Description 02/20/2025 9:00 AM EDT Office Visit [facility] MEDICINE [address] [place] [address] Fatmata Nance MD [address] [place] [phone] 02/27/2025 9:00 AM EDT Clinical Support [facility] MED & PEDS [address] [place] [address] Jil Rousseau, RN [address] [place] [address] 05/15/2025 1:00 PM EDT Office Visit [facility] ADULT DENTAL [address] [place] [address] Edith Hammer documented as of this encounter Visit Diagnoses Not on filedocumented in this encounter Additional Health Concerns Assessment Noted Time PHQ-9 Depression Total Score: 4 08/24/20 23 10:16 AM EST documented as of this encounter Care Teams Supervisor Pairing And Inspecting Relationship Specialty Start Date End Date Fatmata Nance MD [address] [place] [phone] PCP - General Internal Medicine 05/29/23 Erlinda Rausch FNP [address] [place] [phone] Nurse Practitioner Family Medicine 08/01/23 documented as of this encounter
--- OUTSIDE RECORDS SUMMARY | 2024-11-28 17:55 | XMS_ITS | Data Portability ---
Author Organization [facility] [employer] Address [address] [place] [phone] Care Team Providers Care Jacquard Loom Card Changer Name Role Phone HIM CCA OTHER Assessment No assessment recorded. Plan of Treatment Reminders Order Date Submit Date Provider Last Modified By Organization Details Last Modified Time Details Appointments None recorded. Lab culture, urine 2022 023 [facility] (Centralized Electronic Ordering - All Locations), Patient Can Go To The Location Of Their Choice, [id number] 16:40:03 culture, urine 2022 023 [facility] (Centralized Electronic Ordering - All Locations), Patient Can Go To The Location Of Their Choice, [id number] 14:55:29 Referral None recorded. Procedures None recorded. Surgeries None recorded. Imaging None recorded. Medication Orders Bactrim DS 800 mg-160 mg tablet 2022 023 [facility] #[id number], [address] [place], [address], 14:18:04 levofloxaci n 500 mg tablet 2022 023 [facility] #[id number], [address] [place], [address], 12:55:48 Patient TargetsNo targets recorded. Patient InstructionsNo instructions recorded. Reason for Referral None Reported. Results Created Date Observation Date Name Description Value Unit Range Abnormal Flag Note LastModifiedBy Organization Detail LastModifiedTime 03/13/2003/13/2023 URINE CULTU RE specimen description URINE Not Available [facility] (Centralized [facility] Ordering - All Locations) Patient Can Go To The Location Of Their Choice, [id number] 03/15/2023 14:55:29 03/13/2003/13/2023 URINE CULTU RE special requests NONE Not Available [facility] (Centralized Electronic Ordering - All Locations) Patient Can Go To The Location Of Their Choice, 03/15/2023 14:55:29 03/13/2003/15/2023 URINE CULTU RE culture abnormal >100, 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 This isola te was ident ified using Maldi -TOF syste m These AST resul ts were perfo rmed on the Micro scan ID and AST syste m Not Available [facility] (Centralized Electronic Ordering - All Locations) Patient Can Go To The Location Of Their Choice, 03/15/2023 14:55:29 03/13/2003/15/2023 URINE CULTU RE report status FINAL 2022 Not Available [facility] (Centralized Electronic Ordering - All Locations) Patient Can Go To The Location Of Their Choice, 03/15/2023 14:55:29 03/13/2003/15/2023 URINE CULTU RE organism ORGAN ISM >100, 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 INHIB. CONC. (MCG/M L) Not Available [facility] (Centralized Electronic Ordering - All Locations) Patient Can Go To The Location Of Their Choice, 03/15/2023 14:55:29 03/13/2003/15/2023 URINE CULTU RE amoxicillin/ clavulanic acid AMOXIC ILLIN/ CLAVUL AN SUSCEP TIBLE susceptib le Not Available [facility] (Centralized Electronic Ordering - All Locations) Patient Can Go To The Location Of Their Choice, 03/15/2023 14:55:29 03/13/2003/15/2023 URINE CULTU RE ampicillin AMPICI LLIN RESIST ANT resistant Not Available [facility] (Centralized Electronic Ordering - All Locations) Patient Can Go To The Location Of Their Choice, 03/15/2023 14:55:29 03/13/2003/15/2023 URINE CULTU RE ampicillin/s ulbactam AMPICI LLIN/S ULBACT AM SUSCEP TIBLE susceptib le Not Available [facility] (Centralized Electronic Ordering - All Locations) Patient Can Go To The Location Of Their Choice, 03/15/2023 14:55:29 03/13/2003/15/2023 URINE CULTU RE cefazolin CEFAZO MEMO SUSCEP TIBLE susceptib le Not Available [facility] (Centralized Electronic Ordering - All Locations) Patient Can Go To The Location Of Their Choice, 03/15/2023 14:55:29 03/13/2003/15/2023 URINE CULTU RE cefepime CEFEPI ME SUSCEP TIBLE susceptib le Not Available [facility] (Centralized Electronic Ordering - All Locations) Patient Can Go To The Location Of Their Choice, 03/15/2023 14:55:29 03/13/2003/15/2023 URINE CULTU RE ceftriaxone CEFTRI AXONE SUSCEP TIBLE susceptib le Not Available [facility] (Centralized Electronic Ordering - All Locations) Patient Can Go To The Location Of Their Choice, 03/15/2023 14:55:29 03/13/2003/15/2023 URINE CULTU RE ciprofloxaci n CIPROF LOXACI N SUSCEP TIBLE susceptib le Not Available [facility] (Centralized Electronic Ordering - All Locations) Patient Can Go To The Location Of Their Choice, 03/15/2023 14:55:29 03/13/2003/15/2023 URINE CULTU RE ertapenem ERTAPE NEM SUSCEP TIBLE susceptib le Not Available [facility] (Centralized Electronic Ordering - All Locations) Patient Can Go To The Location Of Their Choice, 03/15/2023 14:55:29 03/13/2003/15/2023 URINE CULTU RE gentamicin GENTAM ICIN SUSCEP TIBLE susceptib le Not Available [facility] (Centralized Electronic Ordering - All Locations) Patient Can Go To The Location Of Their Choice, 03/15/2023 14:55:29 03/13/2003/15/2023 URINE CULTU RE levofloxacin LEVOFL OXACIN SUSCEP TIBLE susceptib le Not Available [facility] (Centralized Electronic Ordering - All Locations) Patient Can Go To The Location Of Their Choice, 03/15/2023 14:55:29 03/13/2003/15/2023 URINE CULTU RE meropenem MEROPE NEM SUSCEP TIBLE susceptib le Not Available [facility] (Centralized Electronic Ordering - All Locations) Patient Can Go To The Location Of Their Choice, 03/15/2023 14:55:29 03/13/2003/15/2023 URINE CULTU RE nitrofuranto in NITROF URANTO IN SUSCEP TIBLE susceptib le Not Available [facility] (Centralized Electronic Ordering - All Locations) Patient Can Go To The Location Of Their Choice, 03/15/2023 14:55:29 03/13/2003/15/2023 URINE CULTU RE piperacillin /tazobactam PIPERA CILLIN /TAZOB AC SUSCEP TIBLE susceptib le Not Available [facility] (Centralized Electronic Ordering - All Locations) Patient Can Go To The Location Of Their Choice, 03/15/2023 14:55:29 03/13/2003/15/2023 URINE CULTU RE tetracycline TETRAC YCLINE SUSCEP TIBLE susceptib le Not Available [facility] (Centralized Electronic Ordering - All Locations) Patient Can Go To The Location Of Their Choice, 03/15/2023 14:55:29 03/13/2003/15/2023 URINE CULTU RE trimeth/sulf amethox TRIMET H/SULF AMETHO X SUSCEP TIBLE susceptib le Not Available [facility] (Centralized Electronic Ordering - All Locations) Patient Can Go To The Location Of Their Choice, 03/15/2023 14:55:29 08/17/20 23 08/17/2023 URINE CULTU RE specimen description URINE Not Available [facility] ([facility]ized [facility] Ordering - All Locations) Patient Can Go To The Location Of Their Choice, 08/18/2023 16:40:03 08/17/20 23 08/17/2023 URINE CULTU RE special requests NONE Not Available [facility] (Centralized [facility] Ordering - All Locations) Patient Can Go To The Location Of Their Choice, 08/18/2023 16:40:03 08/17/20 23 08/18/2023 URINE CULTU RE culture <10,00 0 COL/ML abnormal Not Available [facility] (Centralized Electronic Ordering - All Locations) Patient Can Go To The Location Of Their Choice, [id number] 08/18/2023 16:40:03 08/17/20 23 08/18/2023 URINE CULTU RE report status FINAL 2022 Not Available [facility] (Centralized Electronic Ordering - All Locations) Patient Can Go To The Location Of Their Choice, [id number] 08/18/2023 16:40:03 Result Notes None recorded. Medical Equipment None Reported. Allergies Allergen ID Allergen Name Allergen Category Reaction Reaction Severity Criticality Documentation Date Start Date Code Code System Note Provider Name and Address Organization Details Recorded Time 7264 ibuprofen medicatio n Not available Not available Not available 06/25/2024 5640 RxNorm Not Available [facility] 4 03:36:12 7265 morphine medicatio n Not available Not available Not available 06/25/2024 7052 RxNorm Not Available [facility] - [facility] 4 03:36:12 7266 Product containin g penicilli n (product) medicatio n Not available Not available Not available 06/25/2024 70026 8001 SNOMED Not Available [facility] 4 03:36:12 Medications Name Sig Start Date Stop Date Status Note LastModified by Organization Details LastModified Time fluconazole 150 mg tablet TAKE ONE TABLET THEN AFTER 72HRS TAKE ANOTHER TABLET active Not Available Not Available No t Available metronidazol e 0.75 % (37.5 mg/5 gram) vaginal gel INSERT 1 APPLICATORF UL VAGINALLY AT BEDTIME FOR 5 DAYS active Not Available Not Available N ot Available clonazepam 1 mg tablet TAKE 1 TABLET BY MOUTH TWICE DAILY IN THE MORNING AND AT BEDTIME NEEDED ANXIETY active Not Available Not Available No t Available hydroxyzine HCl 50 mg tablet TAKE 1/2 TABLET (25 MG) BY MOUTH EVERY TWELVE HOURS active Not Available Not Available No t Available sulfamethoxa zole 800 mg-trimethop rim 160 mg tablet TAKE 1 TABLET BY MOUTH EVERY 12 HOURS active Not Available Not Available No t Available doxycycline monohydrate 100 mg tablet PLEASE SEE ATTACHED FOR DETAILED DIRECTIONS active Not Available Not Available N ot Available tramadol 50 mg tablet TAKE 1 TABLET BY MOUTH EVERY 8 HOURS NEEDED FOR SEVERE PAIN active Not Available Not Available Not Available pantoprazole 40 mg tablet,delay ed release TAKE 1 TABLET BY MOUTH DAILY active Not Available Not Available Not Available hydroxyzine HCl 25 mg tablet TAKE 1 TABLET BY MOUTH THREE TIMES DAILY IN THE MORNING, AT NOON, AND AT BEDTIME FOR (for itching) active Not Available Not Available No t Available levofloxacin 500 mg tablet TAKE 1 TABLET BY MOUTH EVERY 24 HOURS FOR 7 DAYS active Not Available Not Available N ot Available Ventolin HFA 90 mcg/actuatio n aerosol inhaler INHALE 2 PUFFS EVERY 4 HOURS NEEDED active Not Available Not Available No t Available Flovent HFA 220 mcg/actuatio n aerosol inhaler INHALE 2 PUFFS TWICE DAILY. RINSE MOUTH AFTER USING. active Not Available Not Available No t Available lurasidone 60 mg tablet TAKE 1 TABLET BY MOUTH ONCE DAILY WITH DINNER active Not Available Not Available No t Available Asmanex HFA 200 mcg/actuatio n aerosol inhaler INHALE 2 PUFFS TWICE DAILY. RINSE MOUTH AFTER USING. active Not Available Not Available No t Available Vitals Date Recorded Body weight Body temperature Body height Heart rate Oxygen saturation Oxygen saturation in Arterial blood by Pulse oximetry Respiratory rate Systolic blood pressure Diastolic blood pressure Provider Name and Address Organization Details Last Updated DateTime 3 50174 g 97.4 [degF] 157.48 cm 80 /min 98 % 98 % 14 /min 124 mm[Hg] 84 mm[Hg] Not Available [employer] 3 12:48:59 Date Recorded Oxygen saturation Oxygen saturation in Arterial blood by Pulse oximetry Respiratory rate Heart rate Systolic blood pressure Diastolic blood pressure Provider Name and Address Organization Details Last Updated DateTime 3 99 % 99 % 16 /min 69 /min 138 mm[Hg] 72 mm[Hg] Not Available [employer] 3 14:12:01 Social History None recorded. Functional Status None recorded. Mental Status None recorded. Family History Nothing Reported. Medical History No medical history recorded. Gynecological HistoryNo gynecological history recorded. Obstetrics History GPAL:G 0 P 0 0 0 0 Past Encounters Encounter ID Performer Location Encounter Start Date Encounter Closed Date Diagnosis/Indication Diagnosis SNOMED-CT Code Diagnosis ICD10 Code Diagnosis Note [id number] Yasir Childers MD [facility] [address] [place] [phone] 03/13/2023 12:48:52 03/14/2023 10:43:44 Recurrent urinary tract infection [id number] N39.0 This 32-year-ol d female was treated for a UTI in January with Bactrim. Her symptoms resolved but recurred over the past five days with dysuria and frequency, but no fever. I ordered a U/C and treatment with Levaquin 500 mg daily for seven days. She will follow-up with her PCP. The patient agreed with this plan. [id number] Yue Garcia MD [facility] [address] [place] [phone] 08/17/2023 14:10:21 08/19/2023 17:13:51 Urinary symptoms [id number] R39.9 33 year old female being evaluated for dysuria and vaginal itching for the last 3 days. She started an OTC yeast infection cream. Patient is without fever/chil ls, or vaginal discharge. She is taking PO, and has no nausea/vom iting. Has urinary frequency and urgency similar to prior UTI's. Exam notable for normal vital signs, POC urine dip positive for leukocytes . Presentati on suggestive of likely simple cystitis, will treat with bactrim based on previous sensitivit ies, and send urine for culture. Patient to continue to use OTC topical products for potential concomitan t yeast. I have reviewed and agree with the assessment and plan as documented by the highballer. I provided real-time medical direction for this encounter and was immediatel y available to provide additional phone-base d assistance as needed. We discussed the diagnostic uncertaint y of home visits and associated risks. We discussed the need to seek care urgently/e mergently in the setting of any new or worsening symptoms. Health Concerns Section Related Observation LastModified by Organization Detai ls LastModified Time None Recorded Concern Status LastModified by Organization Details LastModified Time None Recorded Advance Directives Directive None Recorded Payers Encounter Date Sequence Insurance Name Policy Number Policy Mei Covered Member ID Mei Member ID Guarantor Name 03/13/2023 1 [facility] - DOS ON OR AFTER 2022 - DUAL ELIGIBLE - PENITENTIARY OPTIONS AND ONE CARE (MEDICARE REPLACEMENT/ADV ANTAGE - HMO) Radha Marcus [id number] Radha Marcus 08/17/2023 1 [facility] - DOS ON OR AFTER 2022 - DUAL ELIGIBLE - PENITENTIARY OPTIONS AND ONE CARE (MEDICARE REPLACEMENT/ADV ANTAGE - HMO) Radha Marcus [id number] Radha Melissa Amrit Notes Date Note Type Note Provider Name and Address Organization Details Recorded Time 03/13/2023 text/html HPI: Patient with history of GERD, PTSD,Opioid use. Treated for UTI symptoms on 02/27/23. Lab culture shows> 100K Klebsiella pneumoniae, > 100K Group B strep. [facility] report order # [id number]. Completed BID Bactrim x 3 days. Now with recurrent symptoms and painful urination. Burning, frequency and vaginal itching. No fever noted. ................... ................... ................... ................... ................... ................... ................... ........ [facility] Nursing Assessment: Comments: Review request no further information needed to process visit Yasir Childers MD [address] [place] [address],[address], [place], [phone] 03/13/2023 12:56:12 08/17/2023 text/html [facility] Nurse Triage Notes (Rosemary Fulton): Reason For Request: Pt is having a some sort of urinary infection, yeast infection, she is not sure>itchiness, frequency with urination, burning with urination>no abdominal pain reported>no odor. Feels as if infection is starting. Patient Reports: Painful urination; Painful urination with or without fever; Inability to fully empty bladder Denies: Frequent and increased urination with flank pain Chief Complaints: UTI/Pyelonephritis PMH: COPD/Asthma Allergies: Ibuprofen, Morphine, Penicillin Comments: Verified identity / address Member has had symptoms of UTI since yesterday . Member has painful urination with increased frequency, no changes in color or smell. Member has has symptoms in the past. Member denies fever/ chills ................... ................... ................... ................... ................... ................... ................... ........ Hand Plug Shaper Note From Gus Zambrano: Patient complains of three days of urinary burning and increasing frequency. Patient states she suffers from chronic UTIs as well as yeast infections. Patient currently denies any nausea, vomiting, or dizziness or vaginal discharge. Patient expresses her last UTI was approximately 3 to 4 months ago. Patient denies any blood in urine. Skin warm dry and of appropriate color for ethnicity. Head and neck, free of trauma and edema. Patient breathing free and easy. Abdomen soft, nontender nondistended. Extremities, free of trauma and edema; patient exhibited steady unassisted. POC urinalysis performed, results sent to [facility]. Culture performed at [facility] orders, to be dropped off at local laboratory. Prescription to patient? s pharmacy of choice to be made by [facility]. Red flags discussed with patient. Patient encouraged to seek medical attention should she become further symptomatic. Hand Plug Shaper Allergies: Ibuprofen, Morphine, Penicillin ................... ................... ................... ................... ................... ................... ................... ........ Disposition: Fulfilled Yue Garcia MD [address] [facility],[address], [place], [address], [employer] 08/17/2023 14:36:20 OBGyn Episode No OBEpisode recorded.
--- OUTSIDE RECORDS SUMMARY | 2024-11-28 17:55 | XMS_ITS | Encounter Summary ---
Author Organization [email or web address] Address [address] [place] [address] Care Team Providers Care Cash Register Servicer Name Role Phone Fatmata Nance MD Primary Care Pro vider Jordon Rausch Unavailable Unavailable Reason for Visit * Reason Onset Date Comments Med Refill 06/19/2024 Encounter Details Date Type Department Care Team (Late st Contact Info) Description 06/19/[address] [facility] MEDICINE [address], [place] [phone] Fatmata Nance MD [address] [place] [address] Med Refill Social History Tobacco Use Types [...] encounter Miscellaneous Notes * Telephone Encounter - Chelsea Perez - 06/19/2024 1:37 PM EDT TC from pt requesting medication refill. Medications needing refill : traMADol (Ultram) 50 MG tablet To be sent to: [facility] documented in this encounter Plan of Treatment Upcoming Encounters Date Type Department Care Team (Late st Contact Info) Description 02/20/2025 9:00 AM EDT Office Visit [facility] MEDICINE [address] [place] [address] Fatmata Nance MD [address] [place] [address] 02/27/2025 9:00 AM EDT Clinical Support [facility] CHC MED & PEDS [address] [place] [address] Jil Rousseau, SHARMIN [address] [place] [address] 05/15/2025 1:00 PM EDT Office Visit [facility] ADULT DENTAL [address] [place] [address] Edith Hammer documented as of this encounter Visit Diagnoses Not on filedocumented in this encounter Additional Health Concerns Assessment Noted Time PHQ-9 Depression Total Score: 0 01/18/20 24 3:43 PM EDT documented as of this encounter Care Teams Cash Register Servicer Relationship Specialty Start Date End Date Fatmata Nance MD [address] [place] [address] PCP - General Internal Medicine 05/29/23 Jordon Rausch FNP [address] [place] [address] Nurse Practitioner Family Medicine 08/01/23 documented as of this encounter
--- OUTSIDE RECORDS SUMMARY | 2024-11-28 17:55 | XMS_ITS | Encounter Summary ---
Author Organization [employer] Address [address] [facility] [address] [place] [address] Care Team Providers Care Bakery Manager Name Role Phone Anastasiya Garcia Primary Care Provider [phone] Fatmata Nance MD Primary Care Pro vider Jordon Rausch Unavailable Unavailable Reason for Visit * Reason Onset Date Comments Med Refill 10/24/2022 Encounter Details Date Type Department Care Team (Late st Contact Info) Description 10/24/2022 Refill [facility] MEDICINE [address] [place] [address] Anastasiya Garcai, NANY [address] [place] [address] [place] [address] Pain in right knee; Posttraumatic stress disorder Social History Tobacco Use [...] encounter Miscellaneous Notes * Telephone Encounter - Nichole Garrett - 10/24/2022 11:11 AM EST Tc from pt requesting med refill for medication clonazePAM (KlonoPIN) 1 MG tablet traMADol (Ultram) 50 MG tablet documented in this encounter Plan of Treatment Upcoming Encounters Date Type Department Care Team (Late st Contact Info) Description 02/20/2025 9:00 AM EDT Office Visit [facility] MEDICINE [address] [place] [address] Fatmata Nance MD [address] [place] [address] 02/27/2025 9:00 AM EDT Clinical Support [facility] CHC MED & PEDS [address] [place], [place] [phone] Jil Rousseau RN [address] [place], [place] [phone] 05/15/2025 1:00 PM EDT Office Visit [facility] ADULT DENTAL [address] [place] [address] Edith Hammer documented as of this encounter Visit Diagnoses Diagnosis Pain in right knee Posttraumatic stress disorder documented in this encounter Additional Health Concerns Assessment Noted Time PHQ-9 Depression Total Score: 4 08/23/20 22 2:48 PM EST documented as of this encounter Care Teams Bakery Manager Relationship Specialty Start Date End Date Anastasiya Garcia FNP PCP - General Family Medicine 04/26/22 05/28/23 Fatmata Nance MD [address] [place] [phone] PCP - General Internal Medicine 05/29/23 Jordon Rausch FNP [address] [place] [id number] Nurse Practitioner Family Medicine 08/01/23 documented as of this encounter
[2024-12-03 10:43] LABS: Alphahydroxymidazolam,GCMS Ur NEGATIVE; Alphahydroxytriazolam, GCMS Ur NEGATIVE; Alprazolam, GCMS Urine NEGATIVE; Aminoclonazepam, GCMS Urine NEGATIVE; Flurazepam Metabolite,GCMS Ur NEGATIVE; Lorazepam GCMS Urine NEGATIVE; Nordiazepam, GCMS Urine NEGATIVE; Oxazepam, GCMS Urine NEGATIVE; Temazepam, GCMS Urine NEGATIVE
== END 2024-11-28 17:53 | disposition home or self-care (01) ==
LOC: HO.CHCLNP 17:52
PROVIDERS: Visit Provider Student in an Organized Health Care Education/Training Program
DX: M25.561 Pain in right knee (principal); M25.562 Pain in left knee; G89.29 Other chronic pain
CPT/HCPCS: 80346

== ENCOUNTER 2025-02-12 16:41 | Emergency (ER) | payer OTHER, SELFPAY ==
--- NOTE | ~2025-02-12 | US_ITS ---
CLINICAL HISTORY: left lower abdominal pain US pelvis transabdominal and transvaginal with Doppler Comparison: None provided Findings: Transvaginal and transabdominal scanning performed. Anteverted uterus is 10.4 cm length. Normal myometrium. Endometrium 6 mm thickness. Scattered nabothian cysts. Right ovary 2.8 x 1.4 x 1.6 cm. Left ovary 2.9 x 2.8 x 3.4 cm. Dominant follicle noted. Normal color Doppler of both ovaries. No free fluid. IMPRESSION: No evidence of ovarian torsion. This document has been electronically signed by: Jose G Garcia MD on 02/12/2025 18:32:15
--- NOTE | ~2025-02-12 | CT_ITS ---
CLINICAL HISTORY: LLQ abd pian, hx of kidney stones CT abdomen and pelvis without contrast Comparison: None provided Findings: Diffuse esophageal mural thickening, nonspecific. Right lower lobe 2 mm nodule. Per Fleischner criteria: Low-risk patients: No routine follow-up required. High-risk patients: Optional CT at 12 months. Hepatomegaly. Nonobstructive 2 mm calculus in the right upper pole kidney. No bowel obstruction, pneumoperitoneum, or pneumatosis. Scattered colonic diverticulosis without diverticulitis or colitis. Normal appendix. Small bilateral adnexal cysts, largest on the left measuring 2.5 cm. This may be further evaluated with ultrasound. The bones are intact. Mild asymmetric arthritic changes in the hijeq-xofipyf-zgis-left SI joints. IMPRESSION: 1. Nonobstructive 2 mm calculus in the right upper pole kidney. 2. Additional findings as described. This document has been electronically signed by: Jose G Garcia MD on 02/12/2025 19:47:23
[2025-02-12 16:46] VITALS: BP 152/86; PULSE 89; RESP 16; TEMP 36.7; O2SAT 100; BMI 28.6
[2025-02-12 17:15] LABS: Basophils Percent Auto 0.4 % (0-2); Eosinophils Percent Auto 0.5 % (0-4); Hematocrit 32.4 % (37.0-47.0); Hemoglobin 10.1 g/dl (12.0-16.0); Imm Gran Abs Auto 0.02 X10*3/uL (0.00-0.03); Imm Gran Pct Auto 0.3 % (0.0-0.4); Lymphocytes Absolute Auto 2.3 X10*3/uL (1.2-4.9); Lymphocytes Percent Auto 29.5 % (20-40); MANUAL DIFF FLAG NO; Mean Corpuscular HGB Conc 31.2 g/dl (31.0-35.0); Mean Corpuscular Hemoglobin 24.1 pg (27.0-33.0); Mean Corpuscular Volume 77.3 fL (80.0-98.0); Mean Platelet Volume 9.5 fL (9.4-12.3); Monocytes Absolute Auto 0.6 X10*3/uL (0.1-1.2); Monocytes Percent Auto 8.1 % (2-11); Neutrophils Absolute Auto 4.7 x10*3/uL (2.0-8.3); Neutrophils Percent Auto 61.2 % (45-73); Platelet Count 375 X10*3/uL (160-400); Red Blood Count 4.19 X10*6/uL (4.20-5.50); Red Cell Distribution Width 16.7 % (11.0-16.0); White Blood Count 7.6 X10*3/uL (4.8-10.8)
[2025-02-12 17:30] LABS: Alanine Aminotransferase 18 U/L (0-31); Albumin Level 4.6 g/dL (3.5-5.0); Alkaline Phosphatase 62 U/L (39-117); Anion Gap 11 (12-20); Aspartate Amino Transferase 33 U/L (5-31); Bilirubin Total 0.3 mg/dL (0.0-1.0); Blood Urea Nitrogen 8 mg/dL (9-16); Calcium 9.1 mg/dL (8.4-10.2); Carbon Dioxide 24 mmol/L (22-29); Chloride 110 mmol/L (96-108); Creatinine Clr Calc Pharmacy 114.8; Estimated Glomerular Filt Rate > 60; Glucose Random 80 mg/dL (60-115); Potassium 3.7 mmol/L (3.3-5.1); Sodium 141 mmol/L (135-145); Total Protein 7.6 g/dL (6.5-8.0)
[2025-02-12 18:23] VITALS: BP 137/87; PULSE 81; RESP 16; TEMP 37; O2SAT 99
[2025-02-12 18:37] LABS: Appearance Urine Clear; Color Urine Yellow; Glucose Urine UA Negative (Negative); Leukocyte Esterase Urine Trace (Negative); Nitrite Urine Negative (Negative); UMIC TRIGGER UACC YES; Urine Blood Negative (Negative); Urine Ketones Negative (Negative); Urine Protein Negative (Neg-Trace)
[2025-02-12 18:38] LABS: UPreg QC Valid YES; Urine Pregnancy NEGATIVE (NEGATIVE)
[2025-02-12 18:50] LABS: Bacteria Urine None Seen (None Seen); Hyaline Casts Urine 0-2 /LPF (0-2); RBC Urine 0-2 /HPF (0-2); WBC Urine 0-5 /HPF (0-5)
--- NOTE | 2025-02-12 19:17 | ED.ABDPAIN ---
HPI - Abdominal Pain General Chief Complaint: Abdominal Pain Stated Complaint: lower abd pain Time Seen by Provider: 02/12/25 19:07 Source: patient Mode of arrival: ambulatory Limitations: no limitations History of Present Illness ED Provider: DR. Sanedrs HPI narrative: 34-year-old female came in for evaluation of left lower quadrant abdominal pain x5 days patient describes the pain as localized severe crampy pain only to the left lower abdomen/pelvic area, patient had her period 10 days ago it is not likely the pain is related to upcoming menstruation as per patient, no known history of ovarian cyst or ovarian torsion, patient had history of left kidney stone required surgical intervention for removal. No fever, no chills, no nausea, no vomiting, no dysuria, no frequency urination, no blood in the urine. History of tubal ligation Related Data Home Medications ?Medication ?Instructions ?Recorded ?Confirmed apixaban 5 mg tablet (Eliquis) 5 mg PO DAILY 12/22/23 11/07/24 clonazepam 1 mg tablet 1 mg PO DAILY anxiety 12/22/23 11/07/24 ferrous gluconate 324 mg (38 mg 324 mg PO DAILY 12/22/23 11/07/24 iron) tablet hydroxyzine HCl 25 mg tablet 25 mg PO TID 12/22/23 11/07/24 lurasidone 60 mg tablet 60 mg PO QPM 12/22/23 11/07/24 pantoprazole 40 mg tablet,delayed 40 mg PO DAILY 12/22/23 11/07/24 release Previous Rx's ?Medication ?Instructions ?Recorded apixaban 2.5 mg tablet (Eliquis) 2.5 mg PO BID #180 tabs 11/07/24 Allergies Allergy/AdvReac Type Severity Reaction Status Date / Time morphine (MORPHINE) Allergy Unknown PANIC Verified 02/12/25 16:49 ATTACKS Penicillins (PENICILLINS) Allergy Unknown DIFFICULTY Verified 02/12/25 16:49 BREATHING divalproex sodium (From AdvReac Unknown NAUSEA & Verified 02/12/25 16:49 DEPAKOTE) VOMITING ibuprofen (Ibuprofen) AdvReac Unknown NAUSEA & Verified 02/12/25 16:49 VOMITING Review of Systems Review of Systems All other systems are reviewed and are negative Constitutional: Reports as per HPI and Reports no additional constitutional complaints Eyes: Reports as per HPI and Reports no additional eye complaints Reports system reviewed and no additional complaints, except as documented Cardiovascular: Reports as per HPI and Reports no additional cardiovascular complaints Respiratory: Reports as per HPI and Reports no additional respiratory complaints Gastrointestinal: Reports as per HPI and Reports no additional gastrointestinal complaints Genitourinary: Reports no additional female genitourinary complaints Musculoskeletal: Reports no additional musculoskeletal complaints Skin/Breast: Reports system reviewed and no additional complaints, except as docu Psychiatric: Reports no additional psychiatric complaints Endocrine: Reports no additional endocrine complaints Hematologic/Lymphatic: Reports no additional hematologic/lymphatic complaints Allergic/Immunologic: Reports no additional allergic/immunologic complaints Reports system reviewed and no additional complaints, except as documented and Reports Abnormal speech present [facility] Past Medical History Medical History Pulmonary embolism Anxiety Asthma PTSD (post-traumatic stress disorder) Family History Family History Maternal Grandfather Throat cancer Social History Social History Household Members: Family Patient Tobacco Use Status: Never used Tobacco Smoked in Last 30 Days: No Use of substances other than those prescribed or required for medical reasons: No Substance Use Type: Marijuana Advance Directives: No Advance Directives Information Provided: No Do you have a plan to hurt others: No Plan service: No Current occupational status: disabled Physical Exam ED Vital Signs: Vital Signs - 24 hr 02/12/25 16:46 02/12/25 18:23 Temperature 98.1 F 98.6 F Pulse Rate 89 81 Respiratory Rate 16 16 Blood Pressure 152/86 H 137/87 Pulse Oximetry 100 99 Oxygen Delivery Method Room Air Room Air BMI result Body Mass Index 28.6 Vital signs have been reviewed and appear to be correct. Blood pressure elevated. Heart rate normal. Respiratory rate normal. Temperature normal. Oxygen saturation normal. Appearance: Alert. Oriented X3. No acute distress. Head: Normal external exam. Normocephalic. Atraumatic. No Potts signs noted. No raccoon eyes noted Eyes: PERRLA. EOMI. Conjunctiva and sclera normal. Eyelids normal. ENT: TM's Normal. Pharynx normal. Uvula midline. Moist mucous membranes. No trismus noted. No drooling noted. No muffled voice noted. Neck: Normal inspection. Neck supple. FROM. No adenopathy. Thyroid Normal. No meningeal signs. No neck mass noted. CVS: Normal heart rate and rhythm. Heart sound normal. No murmurs noted. Pulses normal throughout. Respiratory: No respiratory distress. Painless inspiration. Breath sounds normal. No wheezes/rales/rhonchi noted. Chest nontender. No accessory muscle usage noted or decreased air movement noted. Abdomen: Soft and nontender. Bowel sounds normal in all 4 quadrants. No distention noted. No organomegaly noted. No visible injury noted. Pelvic exam: Deferred for the ultrasound. Back: No CVA tenderness. Full range of motion noted. Skin: Skin warm and dry. Normal skin color. Normal skin turgor. No rashes/lesions/lacerations noted. Extremities: No lower extremity edema. Extremities exhibit normal range of motion. Extremities nontender. Neuro: Oriented X 3. Cranial nerve exam: II-XII are grossly intact No motor deficit. No sensory deficit. Reflexes normal. Course Reevaluation(s) Reevaluation #1: Left lower quadrant abdominal/pelvic pain. Ultrasound ruled out ovarian torsion. CT ruled out obstructing ureteral stone. Otherwise labs/UA indicating no acute pathology. Will discharge with using NSAIDs if needed for pain. Time: 19:58 Medical Decision Making Differential Diagnosis Differential Diagnoses: The differential diagnosis associated with the presentation includes (Puncture ovarian cyst, ovarian torsion, left obstructing ureteric stone, UTI, pyelonephritis, diverticulitis.) Admission/Observation Consideration of admission/observation: Escalation of care including admission/observation considered Lab Data MDM Lab Attestation statement: I reviewed the patient's lab results. 02/12/25 17:11 02/12/25 17:11 Labs: Lab Results 02/12/25 02/12/25 02/12/25 Range/Units 17:11 18:28 18:29 WBC 7.6 (4.8-10.8) X10*3/uL RBC 4.19 L (4.20-5.50) X10*6/uL Hgb 10.1 L (12.0-16.0) g/dl Hct 32.4 L (37.0-47.0) % MCV 77.3 L (80.0-98.0) fL MCH 24.1 L (27.0-33.0) pg MCHC 31.2 (31.0-35.0) g/dl RDW 16.7 H (11.0-16.0) % Plt Count 375 D (160-400) X10*3/uL MPV 9.5 (9.4-12.3) fL Immature Gran % (Auto) 0.3 (0.0-0.4) % Neut % (Auto) 61.2 (45-73) % Lymph % (Auto) 29.5 (20-40) % [place] % (Auto) 8.1 (2-11) % Eos % (Auto) 0.5 (0-4) % Baso % (Auto) 0.4 (0-2) % Lymph # (Auto) 2.3 (1.2-4.9) X10*3/uL [place] # (Auto) 0.6 (0.1-1.2) X10*3/uL Eos # (Auto) 0.0 (0.0-0.4) X10*3/uL Baso # (Auto) 0.0 (0.0-0.2) X10*3/uL Abs Immat Gran (auto) 0.02 (0.00-0.03) X10*3/uL Absolute Neuts (auto) 4.7 (2.0-8.3) x10*3/uL Absolute Nucleated RBC 0.000 (0.0-0.012) X10*3/uL Nucleated RBC % (auto) 0.0 (0.0-0.2) /100WBC Sodium 141 (135-145) mmol/L Potassium 3.7 (3.3-5.1) mmol/L Chloride 110 H (96-108) mmol/L Carbon Dioxide 24 (22-29) mmol/L Anion Gap 11 L (12-20) BUN 8 L (9-16) mg/dL Creatinine 0.65 (0.5-1.4) mg/dL Estim Creat Clear Calc 114.8 Estimated GFR > 60 Random Glucose 80 (60-115) mg/dL Calcium 9.1 (8.4-10.2) mg/dL Total Bilirubin 0.3 (0.0-1.0) mg/dL AST 33 H (5-31) U/L ALT 18 (0-31) U/L Alkaline Phosphatase 62 (39-117) U/L Total Protein 7.6 (6.5-8.0) g/dL Albumin 4.6 (3.5-5.0) g/dL Urine Color Yellow Urine Appearance Clear Urine pH 7.0 (5.0-9.0) Ur Specific [place] 1.010 (1.005-1.025) Urine Protein Negative (Neg-Trace) mg/dL Urine Glucose (UA) Negative (Negative) mg/dL Urine Ketones Negative (Negative) mg/dL Urine Blood Negative (Negative) Urine Nitrite Negative (Negative) Ur Leukocyte Esterase Trace H (Negative) Urine RBC 0-2 (0-2) /HPF Urine WBC 0-5 (0-5) /HPF Ur Squamous Epith Cells 3-5 (0-2) /HPF Urine Bacteria None Seen (None Seen) Hyaline Casts 0-2 (0-2) /LPF Urine Test NEGATIVE (NEGATIVE) Independent Interpretation I performed an independent interpretation of an: Ultrasound (Pelvic ultrasound: No evidence of ovarian torsion) and CT Scan (Abdomen pelvis:Reversal of the cervical lordosis. Osteopenia. Anterolisthesis at C3-C4. Multilevel spondylosis with osteophytosis, uncovertebral hypertrophy, facet arthropathy and degenerative disc disease. Nlfu-xb-skpdgqjr spinal canal narrowing noted at C4-C5 with moderate to severe right natalie) Radiology Impression Discussion of test interpretation with radiology: I have reviewed the radiologist's reading. Medications Administered Discontinued Medications Generic Name Dose Route Start Last Admin Trade Name Freq PRN Reason Stop Dose Admin Oxycodone HCl 5 mg 02/12/25 19:15 02/12/25 19:28 Oxycodone Hcl Immed Release 5 Mg Tablet PO 02/12/25 19:16 5 mg ONCE ONE Administration Discharge Plan Discharge Clinical Impression: Pelvic pain Patient Disposition: Home, Self-Care Instructions: Pelvic Pain (ED) Additional Instructions: Take Tylenol 500 mg tablet [id number] every 6 hours if needed for pain. Prescriptions: No Action clonazepam 1 mg tablet 1 mg PO DAILY hydroxyzine HCl 25 mg tablet 25 mg PO TID ferrous gluconate 324 mg (38 mg iron) tablet 324 mg PO DAILY Eliquis 5 mg tablet 5 mg PO DAILY pantoprazole 40 mg tablet,delayed release (DR/EC) 40 mg PO DAILY lurasidone 60 mg tablet 60 mg PO QPM Eliquis 2.5 mg Tablet 2.5 mg PO BID Qty: 180 1RF Referrals: Fatmata Nance MD [Primary Care Provider, Internal Medicine] Print Language: Kiswahili
[2025-02-12] MEDS: oxyCODONE HCl Immed Release 5 MG TABLET PO (19:28)
[2025-02-12 20:12] VITALS: BP 137/87; PULSE 81; RESP 16; TEMP 37; O2SAT 99
== END 2025-02-12 20:14 | disposition home or self-care (01) ==
PROVIDERS: Emergency Provider Emergency Medicine; PCP Student in an Organized Health Care Education/Training Program
DX: R10.2 Pelvic and perineal pain (principal); Z79.899 Other long term (current) drug therapy
CPT/HCPCS: 36415; 74176; 76830; 76856; 80053; 81001; 81025; 85025; 93975; 99284

== ENCOUNTER → 2025-02-12 17:04 | Outpatient (BNV) | payer OTHER, SELFPAY | PROVIDERS: PCP Student in an Organized Health Care Education/Training Program; Visit Provider Radiology Diagnostic Radiology | DX: N20.0 Calculus of kidney (principal); R10.32 Left lower quadrant pain | CPT/HCPCS: 74176; 76830; 76856 ==

== ENCOUNTER 2025-05-06 08:44 | Outpatient (AMB) | payer OTHER, SELFPAY ==
--- NOTE | 2025-05-06 08:47 | MHC.OFFVIS ---
Intake Visit Reasons: recurrent kidney stones Intake Note: Patient is present for RECURRENT KIDNEY STONES Urology Medication:NONE Antibiotic Allergy: PENICILLINS Blood Thinner:APIXABAN TODAY'S PVR:[facility] Required: No Allergies morphine (MORPHINE) Allergy (Unknown, Verified 05/06/25 09:09) PANIC ATTACKS Penicillins (PENICILLINS) Allergy (Unknown, Verified 05/06/25 09:09) DIFFICULTY BREATHING divalproex sodium (From DEPAKOTE) Adverse Reaction (Unknown, Verified 05/06/25 09:09) NAUSEA & VOMITING ibuprofen (Ibuprofen) Adverse Reaction (Unknown, Verified 05/06/25 09:09) NAUSEA & VOMITING Medication List - Last Reconciled 05/06/25 by GEOVANNI Daly apixaban (Eliquis) 2.5 mg PO BID clonazepam 1 mg PO DAILY ferrous gluconate 324 mg PO DAILY lurasidone 60 mg PO QPM pantoprazole 40 mg PO DAILY HPI Comments Details: Radha is a 34-year-old female patient of Dr. Dionisio Moran who was accompanied by her daughter at today's office visit. She has a past medical history of anxiety, pulmonary embolism, PTSD, and?asthma. She presents to the office today as a new patient for nephrolithiasis. In discussion with the patient today she discusses a longstanding history of nephrolithiasis that initiated 15 years ago. She reports earlier this year she seeked emergency room care through [facility] at which time she underwent a surgical procedure for an obstructing stone however has not had any establish urological care. She discusses most recently following up at [facility] for lower abdominal pain she had been experiencing at which time a CT of the abdomen and was ordered performed and recommendations were made for urology referral for further assessment evaluation. These results were reviewed and communicated with the patient today. 02/19 nonobstructive 2 mm calculus in the right upper pole kidney. We did discussed at length potential causes of nephrolithiasis as well as further interventions and risks and benefits of these interventions. In office urinalysis results reviewed with the patient today. She currently denies any bothersome urinary issues. She denies urinary urgency, urinary frequency, incontinence, nocturia, hematuria, dysuria, foul smelling urine, changes to urinary stream, flank pain, fever, and or chills. She is happy with her current voiding parameters. Discussion Notes I discussed with the patient that the best preventative measure for kidney stones is adequate hydration, recommending a daily intake of 60-80 ounces of water. We also talked about dietary factors that could contribute to stone formation, such as high calcium oxalate foods. We also discussed 24 hour urine collection and labs. I explained that the current stone is measuring 2 mm, and that most stones of this size can pass naturally. The patient was advised to return in six months for an ultrasound to monitor the stone's status. 1. Nephrolithiasis The patient has a 2 mm kidney stone, with a plan to monitor its status via ultrasound in six months. Increased hydration is recommended, with a target of 60- 80 ounces of water daily, to prevent further stone formation and assist in passing the current stone. [facility] Medical History Pulmonary embolism Anxiety Asthma PTSD (post-traumatic stress disorder) Family History Maternal Grandfather Throat cancer Social History Household Members: Family Patient Tobacco Use Status: Never used Tobacco Substance Use Type: Marijuana service: No Current occupational status: disabled Review of Systems Const All systems reviewed & are unremarkable except as noted in HPI and below Physical Exam Const General: cooperative, healthy appearing, comfortable, no acute distress, well developed, alert and awake Orientation/consciousness: patient oriented x3 Limitations: no limitations HEENT Head: Yes normal to inspection, Yes normocephalic and Yes atraumatic Ears: hearing grossly normal bilaterally Eyes General: appearance normal, both eyes and all related structures Neck Neck: Yes normal visual inspection and Yes trachea midline Chest Chest palpation & inspection: normal inspection of the chest Resp Effort & Inspection: normal respiratory effort and able to speak in complete sentences Cardio Rate: regular rate GI Inspection: Yes normal to inspection General: Yes no CVA tenderness Back/Spine/Pelvis Back: no CVA tenderness Skin General skin exam: no rashes or lesions noted Neuro General: patient oriented x3 Extrem General: Yes normal to inspection Psych Appearance: grossly normal and well kempt Mental Status: mental status grossly normal Speech and movement: Normal speech and movement present and Clear speech present Affect: normal affect Attitude: cooperative Thought process: Normal thought process present Thought content: Normal thought content present Insight: Fair insight present (Psych) Judgement: Fair judgement present (Psych) Office Procedures Post Void Residual Post Residual Void Post Void Residual (PVR): 0 [id number] Void Residual by ultrasound Results AMB Urinalysis, Automated UA Leukoctes 15 Crescencio/uL Last Edit by JOVANNI Souza on 05/06/25 08:57 UA Nitrite Negative Last Edit by Awilda Lundbegr [facility] on 05/06/25 08:57 UA Urobilinogen 0.2 mg/dL Last Edit by Awilda Lundberg [facility] on 05/06/25 08:57 UA Protein 15 mg/dL Last Edit by Awilda Lundberg [facility] on 05/06/25 08:57 UA pH 6.0 Last Edit by Awilda Lundberg [facility] on 05/06/25 08:57 UA Blood 0 Michael/uL Last Edit by Awilda Lundberg [facility] on 05/06/25 08:57 UA Specific [place] 1.020 Last Edit by Awilda Lundberg [facility] on 05/06/25 08:57 UA Ketone Negative Last Edit by Awilda Lundberg [facility] on 05/06/25 08:57 UA Bilirubin 0 mg/dL Last Edit by Awilda Lundberg [facility] on 05/06/25 08:57 UA Glucose 0 mg/dL Last Edit by Awilda Lundberg [facility] on 05/06/25 08:57 Results Reviewed Results Reviewed: Laboratory Last Values Urine pH (Auto) 6.0 05/06/25 08:56 Specific [place] (Auto) 1.020 05/06/25 08:56 Urine Protein (Auto) 15 mg/dL 05/06/25 08:56 Glucose (UA)(Auto) 0 mg/dL 05/06/25 08:56 Urine Ketones (Auto) Negative 05/06/25 08:56 Urine Blood (Auto) 0 Michael/uL 05/06/25 08:56 Urine Nitrite (Auto) Negative 05/06/25 08:56 Urine Bilirubin (Auto) 0 mg/dL 05/06/25 08:56 Urine Urobilinogen (Auto) 0.2 mg/dL 05/06/25 08:56 Leukocyte Esterase (Auto) 15 Crescencio/uL 05/06/25 08:56 Date of Service: 02/12/25 Procedure(s): CT abdomen pelvis wo IV con Findings: Diffuse esophageal mural thickening, nonspecific. Right lower lobe 2 mm nodule. Per Fleischner criteria: Low-risk patients: No routine follow-up required. High-risk patients: Optional CT at 12 months. Hepatomegaly. Nonobstructive 2 mm calculus in the right upper pole kidney. No bowel obstruction, pneumoperitoneum, or pneumatosis. Scattered colonic diverticulosis without diverticulitis or colitis. Normal appendix. Small bilateral adnexal cysts, largest on the left measuring 2.5 cm. This may be further evaluated with ultrasound. The bones are intact. Mild asymmetric arthritic changes in the yanbn-exwqxav-nlry-left SI joints. IMPRESSION: 1. Nonobstructive 2 mm calculus in the right upper pole kidney. 2. Additional findings as described. Assessment & Plan Assessment & Plan (1) Nephrolithiasis: Code(s): N20.0 - Calculus of kidney Category: Medical Plan In office urinalysis results reviewed with the patient today; as noted above. PVR [address] results reviewed with the patient today; as noted above. She currently denies any bothersome urinary issues or concerns. She reports be happy with current voiding parameters. We discussed at length the importance of adequate hydration relation to nephrolithiasis as well as overall health and well-being. We discussed adding 1 oz of lemon juice to water daily. We also discussed vitamin B6. We will continue with surveillance monitoring at this time. We did discussed metabolic workup to include Litholink and labs. Will obtain renal ultrasound in 6 months. Follow-up in 6 months with imaging; or sooner with any issues, concerns, and or questions Orders: Orders US renal BI 6 Months N20.0 - Calculus of kidney AMB Urinalysis Automated Today Z13.9 - Encounter for screening, unspecified Patient Instructions: The patient had an opportunity to ask questions regarding the treatment plan. All questions were answered. Physical exam, labs, and imaging were discussed and reviewed in detail. As well as risks, benefits, and discussion of treatment choices. No major barriers to understanding were identified. The patient expressed understanding and agreement with the above treatment plan. The patient was made aware they should contact our office by phone for worsening of their current condition, the appearance of new symptoms, or with any questions or concerns. Compliance is encouraged with any medications and follow up testing that is ordered. It is a privilege to be allowed the opportunity to participate in? your urological care.? Again, if you have any questions or concerns If you have any questions or concerns please do not hesitate to contact me. The office is [phone]. This note is constructed using voice recognition software. While every effort has been made to ensure accuracy optical mechanic apprentice errors may have been included. Yours sincerely, NANY Daly-BESSIE Coding Level of Care Code New Pt Level 3 (24759) Diagnoses Nephrolithiasis N20.0 CPT Codes Post Residual Void - PVR CPT Code: 59963-Fktd Void Residual by ultrasound ([id number])
--- OUTSIDE RECORDS SUMMARY | 2025-05-06 09:52 | XMS_ITS | Encounter Summary ---
Author Organization [employer] Address [address] [place] [address] 7 [place] [address] Care Team Providers Care Caramel Cutter Hand Name Role Phone Anastasiya GarciaP Primary Care Provider Fatmata Zhu MD Primary Care Pro vider Jordon Rausch Unavailable Unavailable Encounter Details Date Type Department Care Team (Latest Contact Info) Description 01/07/2019 Abstract [facility] CONVERSIONS Dental, Provider, DDS Social History Tobacco [...] Care Team (Late st Contact Info) Description 05/15/2025 1:00 PM EDT Office Visit [facility] ADULT DENTAL [address] [place] [address] Edith Hammer 05/27/2025 9:30 AM EDT Clinical Support [facility] MED & PEDS [address] [place] [address] Jil Rousseau, SHARMIN [address] [place] [address] documented as of this encounter Visit Diagnoses Not on filedocumented in this encounter Care Teams Caramel Cutter Hand Relationship Specialty Start Date End Date Anastasiya Garcia FNP PCP - General Family Medicine 04/26/22 05/28/23 Fatmata Nance MD [address] [place], [place] [id number] PCP - General Internal Medicine 05/29/23 Jordon Rausch FNP [address] [place] [address] Nurse Practitioner Family Medicine 08/01/23 documented as of this encounter
--- OUTSIDE RECORDS SUMMARY | 2025-05-06 09:52 | XMS_ITS | Encounter Summary ---
Author Organization [employer] Address [address] [facility] [address] [place] [address] Care Team Providers Care Operational Meteorologist Name Role Phone Fatmata Nance MD Primary Care Pro vider Jordon Rausch Unavailable Unavailable Reason for Visit * Reason Comments Med Refill Encounter Details Date Type Department Care Team (Late st Contact Info) Description 04/07/[address] [facility] MEDICINE [address] [place] [address] Jordon Rausch FNP Posttraumatic stress disorder Social [...] Description 05/15/2025 1:00 PM EDT Office Visit [facility] ADULT DENTAL [address] [place] [address] Edith Hammer 05/27/2025 9:30 AM EDT Clinical Support [facility] MED & PEDS [address] [place] [address] Jil Rousseau, SHARMIN [address] [place] [address] documented as of this encounter Visit Diagnoses Diagnosis Posttraumatic stress disorder documented in this encounter Additional Health Concerns Assessment Noted Time PHQ-9 Depression Total Score: 0 01/18/20 24 3:43 PM EDT documented as of this encounter Care Teams Operational Meteorologist Relationship Specialty Start Date End Date Fatmata Nance MD [address] [place] [address] PCP - General Internal Medicine 05/29/23 Jordon Rausch FNP [address] [place] [address] Nurse Practitioner Family Medicine 08/01/23 documented as of this encounter
--- OUTSIDE RECORDS SUMMARY | 2025-05-06 09:52 | XMS_ITS | Encounter Summary ---
Author Organization [employer] Address [address] [place] [address] 7 [place] [address] Care Team Providers Care Intelligence Intern Name Role Phone Anastasiya GarciaP Primary Care Provider Fatmata Zhu MD Primary Care Pro vider Jordon Rausch Unavailable Unavailable Encounter Details Date Type Department Care Team (Latest Contact Info) Description 06/05/2020 Abstract [facility] CONVERSIONS Dental, Provider, DDS Social History Tobacco [...] Description 05/15/2025 1:00 PM EDT Office Visit [facility] ADULT DENTAL [address] [place] [address] Edith Hammer 05/27/2025 9:30 AM EDT Clinical Support [facility] CHC MED & PEDS [address] [place] [address] Jil Rousseau, SHARMIN [address] [place] [address] documented as of this encounter Visit Diagnoses Not on filedocumented in this encounter Care Teams Intelligence Intern Relationship Specialty Start Date End Date Anastasiya Garcia FNP PCP - General Family Medicine 04/26/22 05/28/23 Fatmata Nance MD [address] [place], [place] [phone] PCP - General Internal Medicine 05/29/23 Jordon Rausch FNP [address] [place] [address] Nurse Practitioner Family Medicine 08/01/23 documented as of this encounter
--- OUTSIDE RECORDS SUMMARY | 2025-05-06 09:53 | XMS_ITS | Encounter Summary ---
Author Organization [employer] Address [address] [place] [address] [place] [address] Care Team Providers Care Teacher Private Name Role Phone Fatmata Nance MD Primary Care Pro vider Jordon Rausch Unavailable Unavailable Reason for Visit * Reason Onset Date Comments Med Refill 06/19/2024 Encounter Details Date Type Department Care Team (Late st Contact Info) Description 06/19/2024 Telephone [facility] MEDICINE [address] [place], [place] [phone] Fatmata Nance MD [address] [place] [address] Med Refill Social History Tobacco Use Types [...] 50 MG tablet To be sent to: [facility] documented in this encounter Plan of Treatment Upcoming Encounters Date Type Department Care Team (Late st Contact Info) Description 05/15/2025 1:00 PM EDT Office Visit [facility] ADULT DENTAL [address] [place] [address] Edith Hammer 05/27/2025 9:30 AM EDT Clinical Support [facility] CHC MED & PEDS [address] [place] [address] Jil Rousseau RN [address] [place] [address] documented as of this encounter Visit Diagnoses Not on filedocumented in this encounter Additional Health Concerns Assessment Noted Time PHQ-9 Depression Total Score: 0 01/18/20 24 3:43 PM EDT documented as of this encounter Care Teams Teacher Private Relationship Specialty Start Date End Date Fatmata Nance MD [address] [place] [address] PCP - General Internal Medicine 05/29/23 Jordon Rausch FNP [address] [place] [address] Nurse Practitioner Family Medicine 08/01/23 documented as of this encounter
--- OUTSIDE RECORDS SUMMARY | 2025-05-06 09:53 | XMS_ITS | Encounter Summary ---
Author Organization [employer] Address [address] [place] [address] 7 [place] [address] Care Team Providers Care Elastic Attacher Coverstitch Name Role Phone Anastasiya Garcia HEAD TRANSFER CLERK Primary Care Provider Fatmata Zhu MD Primary Care Pro vider Jordon Rausch Unavailable Unavailable Encounter Details Date Type Department Care Team (Latest Contact Info) Description 11/04/2021 Abstract [facility] CONVERSIONS Dental, Provider, DDS Social History Tobacco [...] Description 05/15/2025 1:00 PM EDT Office Visit [facility] ADULT DENTAL [address] [place] [address] Edith Hammer 05/27/2025 9:30 AM EDT Clinical Support [facility] CHC MED & PEDS [address] [place] [address] Jil Rousseau, SHARMIN [address] [place] [address] documented as of this encounter Visit Diagnoses Not on filedocumented in this encounter Care Teams Elastic Attacher Coverstitch Relationship Specialty Start Date End Date Anastasiya Garcia FNP PCP - General Family Medicine 04/26/22 05/28/23 Fatmata Nance MD [address] [place] [address] PCP - General Internal Medicine 05/29/23 Jordon Rausch FNP [address] [place] [address] Nurse Practitioner Family Medicine 08/01/23 documented as of this encounter
--- OUTSIDE RECORDS SUMMARY | 2025-05-06 09:53 | XMS_ITS | Encounter Summary ---
Author Organization [employer] Address [address] [place] [address] [place] [address] Care Team Providers Care Brick Chimney Builder Name Role Phone Fatmata Nance MD Primary Care Pro vider Jordon Rausch Unavailable Unavailable Reason for Visit * Reason Onset Date Comments Nurse Triage 02/12/2025 Encounter Details Date Type Department Care Team (Late st Contact Info) Description 02/12/2025 Telephone [facility] MEDICINE [address] [place] [address] Fatmata Nance MD [address] [place] [address] Nurse Triage Social History Tobacco Use Types Packs/Day Years [...] your housing situation today? I have logan sing 02/12/[address] you li ve. Do you have problems with any of the following? None of the above 02/12/2025 Food Insecurity Answer Date Recorded Within the past 12 months, y ou worried that your food would run out before you got money to buy more: Never True 02/12/2025 Within the past 12 months,th e food you bought just didn't last and you didn't have enough money to get more: Never True Transportation Answer Date Recorded In the past 12 months, has l ack of transportation kept you from medical appts, meetings, work or from getting things needed for daily living? No 02/12/2025 Utilities Answer Date Recorded In the past 12 months, has t he electric, gas, oil or water company threatened to shut off services in your home? No 02/12/2025 Depression Answer Date Recorded Patient Health Questionnaire-2 Score 0 02/20/2025 Internet Access Answer Date Recorded Internet Access Q1 Yes 02/12/2025 Internet Access Q2 Not on file 02/12/2025 Comments No Sex and Gender Information Value Date Recorded Sex Assigned at Female 06/27/2022 10:18 AM EDT Legal Sex Female 10:18 AM EDT Gender Identity Female 06/27/2022 10:18 AM EDT Sexual Orientation Choose not to disclose 2021 10:18 AM EDT documented as of this encounter Functional Status * Over the past 2 weeks, how often have you been bothered by any of the following problems? Question Answer Date of Assessment Author Little interest or pleasure in doing things Not at all 02/20/2025 8:58 AM EDT Nikia Rocha MA Feeling down, depressed, or hopeless Not at all 02/20/2025 8:58 AM EDT Nikia Rocha MA Patient Health Questionnaire -2 Score 0 02/20/2025 8:58 AM EDT Nikia Rocha [place] documented as of this encounter Miscellaneous Notes * Telephone Encounter - Ct Gupta RN - 02/12/2025 1:29 PM EDT Triage call Pt reports abdominal pain which started awhile ago. Pt describes pain as sharp, mainly left side of abdomen in area of ovary. Pain is a cramping pain as well that comes and goes. Pt vag dishcarge is clear/white and reported as normal discharge for Pt. Pt is taking tramadol but, it doesn't affect this pain at all. Pt is not able to lift because it feels like , something is going to burst . Pt is advised to come to [facility] today after work shift ends at 300pm. Pt agrees with this disposition. Insurance is verified as active. Protocol Used: Abdominal Pain - Female (Adult) Protocol-Based Disposition: See in Office or Video Visit Today Video visit not offered Positive Triage Questions: * Moderate pain (e.g., interferes with normal activities that comes and goes (cramps) lasts > 24hours (Exception: Pain with Vomiting or Diarrhea - see that Protocol.) * Patient wants to be seen * All higher-acuity triage questions were negative Care Advice Discussed: * Reassurance and Education - Mild Stomachache * Rest * Drink Clear Fluids * Reasons To Call Back - Severe pain lasts over 1 hour - Constant pain lasts over 2 hours - Intermittent pains (comes and goes, cramps) lasts over 48 hours - You are - You become worse * Telephone Encounter - Bg Valencia - 02/12/2025 1:10 PM EDT Symptom: Abdominal Pain - Female - Not Outcome: Talk to a nurse or provider within 15 minutes Reason: Severe pain now The caller accepted this outcome. Contact pt at [phone] documented in this encounter Plan of Treatment Upcoming Encounters Date Type Department Care Team (Late st Contact Info) Description 05/15/2025 1:00 PM EDT Office Visit [facility] ADULT DENTAL [address] [place] [address] Edith Hammer 05/27/2025 9:30 AM EDT Clinical Support [facility] CHC MED & PEDS [address] [place] [address] Jil Rousseau, SHARMIN [address] [place] [address] documented as of this encounter Visit Diagnoses Not on filedocumented in this encounter Additional Health Concerns Assessment Noted Time PHQ-9 Depression Total Score: 0 01/18/20 24 3:43 PM EDT documented as of this encounter Care Teams Brick Chimney Builder Relationship Specialty Start Date End Date Fatmata Nance MD [address] [place] [address] PCP - General Internal Medicine 05/29/23 Jordon Rausch FNP [address] [place] [address] Nurse Practitioner Family Medicine 08/01/23 documented as of this encounter
--- OUTSIDE RECORDS SUMMARY | 2025-05-06 09:53 | XMS_ITS | Encounter Summary ---
Author Organization [employer] Address [address] [facility] [address] [place] [address] Care Team Providers Care Drafter Seismograph Name Role Phone Anastasiya Garcia Primary Care Provider Mahi Fatmata Chin MD Primary Care Pro vider Jordon Rausch Unavailable Unavailable Reason for Visit * Reason Onset Date Comments Med Refill 05/02/2023 Encounter Details Date Type Department Care Team (Late st Contact Info) Description 05/02/2023 Telephone [facility] MEDICINE [address] [place] [address] Anastasiya Garcia FNP Med Refill Social History Tobacco Use Types [...] 12:58 PM EDT Medication was sent to [facility] on 11/22/22 #90 with 1 refill to soon for refill. * Telephone Encounter - Nichole Garrett - 05/02/2023 11:59 AM EDT TC from pt requesting med refill for mediation lurasidone (Latuda) 60 MG tablet. documented in this encounter Plan of Treatment Upcoming Encounters Date Type Department Care Team (Late st Contact Info) Description 05/15/2025 1:00 PM EDT Office Visit [facility] ADULT DENTAL [address] [place] [address] Edith Hammer 05/27/2025 9:30 AM EDT Clinical Support [facility] CHC MED & PEDS [address] [place] [address] Jil Rousseau, SHARMIN [address] [place] [address] documented as of this encounter Visit Diagnoses Not on filedocumented in this encounter Additional Health Concerns Assessment Noted Time PHQ-9 Depression Total Score: 2 02/22/20 8:58 AM EDT documented as of this encounter Care Teams Drafter Seismograph Relationship Specialty Start Date End Date Anastasiya Garcia FNP PCP - General Family Medicine 04/26/22 05/28/23 Fatmata Nance MD [address] [place] [address] PCP - General Internal Medicine 05/29/23 Jordon Rausch FNP [address] [place] [address] Nurse Practitioner Family Medicine 08/01/23 documented as of this encounter
--- OUTSIDE RECORDS SUMMARY | 2025-05-06 09:53 | XMS_ITS | Clinical Summary ---
Author Organization [employer] Address [address] [facility] [address] [place] [address] Care Team Providers Care Dimpling Machine Operator Name Role Phone Fatmata Nance MD Primary [...] represent a complete record from that organization. albuterol (Ventolin HFA) 108 (90 Base) MCG/ACT inhalerIndicati ons:Mild persistent asthma without complication INHALE 2 PUFFS BY MOUTH EVERY 4 HOURS IF NEEDED 18 g 3 08/22/20 23 Active lurasidone (Latuda) 80 MG tabletIndicatio ns:Posttraumati c stress disorder Take 1 tablet (80 mg) by mouth with evening meal. 90 tablet 3 01/18/20 24 Active docusate sodium (Colace) 100 MG capsule Take 1 tab po bid prn constipation 60 capsule 3 02/22/20 24 Active ferrous gluconate (Fergon) 324 (38 Fe) MG tablet TAKE 1 TABLET BY MOUTH EVERY DAY IN THE MORNING WITH BREAKFAST 90 tablet 07/09/20 24 Active apixaban (Eliquis) 2.5 MG tabletIndicatio ns:Pulmonary Embolism Take 2.5 mg by mouth 2 times daily. By hematology Active clonazePAM (KlonoPIN) 1 MG tabletIndicatio ns:Posttraumati c stress disorder Take 1 tablet (1 mg) by mouth if needed in the morning and at bedtime for anxiety. 60 tablet 12/19/19 25 Active Mometasone Furoate (Asmanex HFA) 200 MCG/ACT aerosol INHALE 2 PUFFS BY MOUTH TWICE DAILY RINSE MOUTH AFTER USING. 13 g 02/21/20 25 Active pantoprazole (ProtoNix) 20 MG EC tablet TAKE 1 TABLET BY MOUTH EVERY DAY 90 tablet 02/21/20 25 Active naloxone (Narcan) 4 mg/0.1 mL nasal spray Administer 1 spray (4 mg) into affected nostril(s) if needed for opioid reversal. May repeat every 2-3 minutes if needed, alternating nostrils, until medical assistance becomes available. 2 each 2 02/29/20 25 2025 Active Additional Information Patient not taking.Reported on 04/24/2025 traMADol (Ultram) 50 MG tabletIndicatio ns:Pain in right knee TAKE 1 TABLET BY MOUTH EVERY 8 HOURS NEEDED FOR SEVERE PAIN 84 tablet 04/18/20 25 Active traMADol (Ultram) 50 MG tabletIndicatio ns:Pain in right knee Take 1 tablet (50 mg) by mouth every 8 (eight) hours if needed for severe pain. 84 tablet 03/21/20 25 2024 Discontinued Active Problems Problem Noted Date Diagnosed Date Kidney stones 02/20/2025 Long-term current use of opiate analgesic 2024 [...] retiring, patient will be referred to new [facility] psychiatric prescriber. Any issues or concerns call [facility]. All her questions were answered, and I [...] Encounters Date Type Department Care Team Description 04/24/2025 9:45 AM EDT Office Visit [facility] MED[facility] [address] [place] [phone] Fatmata Nance MD Other acute pulmonary embolism without acute cor pulmonale (CMS/HCC) (Primary Dx); Kidney stones; Health care maintenance 04/24/2025 Travel 04/18/2025 Refill [facility] [address] [place] [address] Fatmata Nance MD Pain in right knee 03/21/2025 Refill [facility] [address] [place] [address] Jil Rousseau RN Pain in right knee 03/21/2025 Telephone [facility] [address] [place], [place] [phone] Fatmata Nance MD Med Refill 02/27/2025 9:00 AM EDT Clinical Support [facility] [address] [place] [address] Jil Rousseau RN Chronic pain of both knees 02/27/2025 Refill [facility] [address] [place] [address] Jil Rousseau RN 02/27/2025 Travel 02/20/2025 9:00 AM EDT Office Visit [facility] MED[facility]INE [address] [place] [phone] Fatmata Nance MD Recurrent kidney stones (Primary Dx); Dietary counseling; Exercise counseling; Health care maintenance; Kidney stones; Encounter for immunization; Penicillin allergy; Other acute pulmonary embolism without acute cor pulmonale ([facility]); Overweight (BMI 25.0-29.9); Iron deficiency anemia due to chronic blood loss 02/20/2025 Refill [facility] [address] [place] [address] Jil Rousseau, RN Pain in right knee 02/20/2025 Telephone [facility] [address] [place] [address] Fatmata Nance MD Med Refill 02/20/2025 Travel 02/19/2025 Telephone [facility] [address] [place] [phone] Fatmata Nance MD chart prep 02/12/2025 4:00 PM EDT Office Visit [facility] [address] [place] [phone] Con Kaur MD LLQ pain (Primary Dx); Pain of ovary 02/12/2025 Results Follow-Up [facility] [address] [place] [address] Fatmata Nance MD CBC auto differential, Comprehensive Metabolic Panel, Urinalysis, Complete, with Reflex to Culture, HCG, Qualitative, Urine 02/12/2025 Orders Only GENERIC EXTERNAL DATA DEPARTMENT Provider, Generic External Data 02/12/2025 Patient Outreach [facility] [address] [place] [address] Fatmata Nance MD Pre-visit Planning (SDOH negative , Tobacco screening negative. ) 02/12/2025 Travel 02/12/2025 Telephone [facility] [address] [place] [address] Fatmata Nance MD Nurse Triage from Last 3 Months Immunizations Immunization Administration Dates Next Due DTaP, 5 pertussis antigens 11/24/1992,,09/09/1989,12/20,1988 Hep B, Adolescent or Pediatric 04/12/2000,1998,09/28/1998 Hib ([facility]) 02/07/1990 Influenza injectable quadriv alent IIV4 with preservative 06/11/2015 Influenza injectable quadriv alent preservative free 08/18/2016 Influenza, IIV3, injectable 06/07/2011, 9,06/09/2008 Influenza, Split (incl. sarah fied surface antigen) 09/06/2012 MMR 11/11/1993,11/24/1992,09/09/1989 OPV, Trivalent 10/28/1992, 0,1988,10/10 Pneumococcal Conjugate PCV 20 02/20/2025 Pneumococcal Polysaccharide PPSV23 06/14/2011 TD (adult), 2 Lf tetanus tox oid, preservative free, adsorbed 08/31/2005,04/12/2000 Tdap 02/20/2025,04/24/2013 Varicella 08/31/2005,10/06/1999 Family History Medical History Relation Name Comments Rheum arthritis Mother's Sister Throat cancer Paternal Grandfather Relation Name Status Comments Father Maternal Grandfather Mother's Sister Paternal Grandfather Social History Tobacco Use Types Packs/Day Years [...] housing situation today? I have logan hensley 02/12/[address] you li [...] Sign Reading Time Taken Comments Blood Pressure 118/60 04/24/2025 10:05 AM EDT Pulse 83 04/24/2025 10:05 AM EDT Temperature 36.3 C (97.3 F) 04/24/2025 10:05 AM EDT Respiratory Rate 20 04/24/2025 10:05 AM EDT Oxygen Saturation 97% 04/24/2025 10:05 AM EDT Inhaled Oxygen Concentration - - Weight 77.6 kg (171 lb) 04/24/2025 10:05 AM EDT Height 160 cm (5' 3 ) 04/24/2025 10:05 AM EDT Body Mass Index 30.29 04/24/2025 10:05 AM EDT Plan of Treatment Upcoming Encounters Date Type Department Care Team (Late st Contact Info) Description 05/15/2025 1:00 PM EDT Office Visit [facility] ADULT DENTAL [address] [place] [address] Edith Hammer 05/27/2025 9:30 AM EDT Clinical Support [facility] [address] [place] [address] Jil Rousseau, RN [address] [place] [address] Health Maintenance Due Date Last Done Comments Family Planning (PISQ) 2003 HPV Vaccines (1 - 3-dose series) 2003 Pap Smear 2009 Cervical Cancer Screening 05/23/2024 HPV/Cotest 05/23/2024 05/23/2019 COVID-19 Vaccine ( season) 2025 Influenza Vaccine (#1) 2025 6, 06/11/2015, 09/06/2012, Additional history exists Dental Oral Exam 05/11/2025 11/07/2024, 05/2022, 06/05/2020, Additional history exists Dental Prophylaxis 05/11/2025 11/07/2024, 0 05/17/2022, 11/04/2021, Additional history exists Dental X-Ray: Bitewings 11/08/2025 11/08/19 25, 11/04/2021, 06/05/2020, Additional history exists SDOH Screening 02/12/2026 02/12/2025 Alcohol/Substance Use Screening 02/20/2026 02/20/2025 Depression Screening 02/20/2026 02/20/2025, 01/18/20 24 Disability Screening 02/20/2026 02/20/2025 Tobacco Screening 02/20/2026 02/20/2025 Dental X-Ray: Full Mouth 11/09/2027 11/07/2024, 02/25 DTaP/Tdap/Td Vaccines (8 - Td or Tdap) 02/20/2035 02/20/2025, 04/24/2013, 08/31/2005, Additional history exists Zoster Vaccines (1 of 2) 2038 RSV Patients and Patients Aged 60 years or older (1 - 1-dose 75+ series) 2063 HIB Vaccines Completed 02/07/1990 IPV Vaccines Completed 10/28/1992, 01/26, 1988, Additional history exists Hepatitis B Vaccines Completed 04/12/2000, 11/24/1998, 09/28/1998 HIV Screening Completed 04/08/2024, 03/2023, 09/03/2019 Hepatitis C Screening Completed 04/08/2024, 023 Pneumococcal Vaccine: Pediatrics (0 to 5 Years) and At-Risk Patients (6 to 49) Years Completed 02/20/2025, 06/14/2011 Hepatitis A Vaccines Aged Out No long er eligible based on patient's age to complete this topic Meningococcal B Vaccine Aged Out No l onger eligible based on patient's age to complete [...] Comments POCT ASH-14 URINE DRUG SCREEN Routine 02/27/2025 9:26 AM EDT Chronic pain of both knees CT ABDOMEN PELVIS WO CONTRAST Routine 02/12/2025 7:47 PM EDT US PELVIC OVARIAN DOPPLER Routine 02/12/2025 6:32 PM EDT US PELVIS TRANSVAGINAL Routine 6:32 PM EDT URINALYSIS, COMPLETE, WITH REFLEX TO CULTURE Routine 02/12/2025 6:29 PM EDT HCG, QL, URINE Routine 02/12/2025 6:28 PM EDT COMPREHENSIVE METABOLIC PANEL Routine 02/12/2025 5:11 PM EDT CBC WITH AUTO DIFFERENTIAL Routine 02/12/2025 5:11 PM EDT POCT , URINE Routine 02/12/2025 4:01 PM EDT Pain of ovary POCT URINALYSIS DIPSTICK Routine 02/12/2025 4:01 PM EDT Pain of ovary PROPHYLAXIS - ADULT Routine 11/07/2024 1 :00 PM EDT Dental calculus Dental plaque INTRAORAL - COMPLETE SERIES OF RADIOGRAPHIC IMAGES Routine 11/07/2024 1:00 PM EDT PERIODIC ORAL EVALUATION - ESTABLISHED PATIENT Routine 11/07/2024 1:00 PM EDT HEPATITIS C AB W/REFL TO HCV RNA, QN, PCR Routine 04/08/2024 10:20 AM EDT Annual physical exam HIV 1/2 ANTIGEN/ANTIBODY, FOURTH GENERATION W/RFL Routine 04/08/2024 10:20 AM EDT Annual physical exam ZZZ HISTORICAL HPV MRNA E6/E7 Routine 05/23/2019 10:07 AM EDT from Last 3 Months or Most Recently Relevant to Health Maintenance Results * (ABNORMAL) POCT ASH-14 Urine Drug Screen (02/27/2025 9:26 AM EDT) THC Positive(A) Negative Cocaine Screen, Urine Negative Negative Opiate Screen, Urine Negative Negative Methamphetamine Screen Urine Negative Negative Amphetamine Screen, Urine Negative Negative Benzodiazepines Screen, Urine Negative Negative Barbiturate Screen, Urine Negative Negative Methadone Screen, Urine Negative Negative Buprenophine Screen, Urine Negative Negative TCA, Urine Negative Negative MDMA Urine Negative Negative ng/mL Oxycodone Screen, Urine Negative Negative Phencyclidine (PCP), Urine Negative Negative Propoxyphene, Urine Negative Negative Fentanyl, Urine Negative Negative Urine Urine specimen obtained by clean catch procedure / Unknown 02/27/2025 9:26 AM EDT Narrative Jil Rousseau, RN - 02/27/2025 9:26 AM EDT Internal Pass Control Lot# [id number] Exp: 06-27-26 Fatmata Moran MD POINT OF CARE JAMES T ENTER/EDIT ORDERABLES Final Result * CT Abdomen Pelvis w/o Contrast (02/12/2025 7:47 PM EDT) Anatomical Region Laterality Modality Body, Pelvis, Abdomen Computed T omography 02/12/2025 7:47 PM EDT Narrative 02/12/2025 7:49 PM EDT [place] [address] CT Scan Report Signed Patient: Radha Marcus MR#: [id number] 4 : 1990 Acct:[id number] Age/Sex: 34 / F ADM Date: 02/12/25 Loc: HO.ED Attending Dr: Ordering Physician: Kelton Sanders MD Date of Service: 02/12/25 Procedure(s): CT abdomen pelvis wo IV con Accession Number(s): [id number] cc: Kelton Sanders MD; Fatmata Nance MD Report Number: [id number]: Total DLP = 580.00 mGy-cm CLINICAL HISTORY: LLQ abd pian, hx of kidney stones CT abdomen and pelvis without contrast Comparison: None provided Findings: Diffuse esophageal mural thickening, nonspecific. Right lower lobe 2 mm nodule. Per Fleischner criteria: Low-risk patients: No routine follow-up required. High-risk patients: Optional CT at 12 months. Hepatomegaly. Nonobstructive 2 mm calculus in the right upper pole kidney. No bowel obstruction, pneumoperitoneum, or pneumatosis. Scattered colonic diverticulosis without diverticulitis or colitis. Normal appendix. Small bilateral adnexal cysts, largest on the left measuring 2.5 cm. This may be further evaluated with ultrasound. The bones are intact. Mild asymmetric arthritic changes in the akvaw-bzljjea-ftxk-left SI joints. IMPRESSION: 1. Nonobstructive 2 mm calculus in the right upper pole kidney. 2. Additional findings as described. This document has been electronically signed by: Jose G Garcia MD on 02/12/2025 19:47:23 Dictated By: Jose G Garcia MD Signed By: <Electronically signed by Jose G Garcia MD in OV> 02/12/251946 DD/ 46 TD/TT: 02/12/251946 Lead Pressman: Procedure Note Donotuseinterpreter, Image - 02/12/[address] [place] [address] [address] Scan Report Signed Patient: Radha Marcus MMR#: [id number] 4 : 1990Acct:[id number] Age/Sex: 34 / FADM Date: 02/12/25 Loc: HO.ED Attending Dr: Ordering Physician: Kelton Sanders MD Date of Service: 02/12/25 Procedure(s): CT abdomen pelvis wo IV con Accession Number(s): [id number] cc: Kelton Sanders MD; Fatmata Nance MD Report Number: [id number]: Total DLP = 580.00 mGy-cm CLINICAL HISTORY: LLQ abd pian, hx of kidney stones CT abdomen and pelvis without contrast Comparison: None provided Findings: Diffuse esophageal mural thickening, nonspecific. Right lower lobe 2 mm nodule. Per Fleischner criteria: Low-risk patients: No routine follow-up required. High-risk patients: Optional CT at 12 months. Hepatomegaly. Nonobstructive 2 mm calculus in the right upper pole kidney. No bowel obstruction, pneumoperitoneum, or pneumatosis. Scattered colonic diverticulosis without diverticulitis or colitis. Normal appendix. Small bilateral adnexal cysts, largest on the left measuring 2.5 cm. This may be further evaluated with ultrasound. The bones are intact. Mild asymmetric arthritic changes in the chxqa-idzxxzr-ibbc-left SI joints. IMPRESSION: 1. Nonobstructive 2 mm calculus in the right upper pole kidney. 2. Additional findings as described. This document has been electronically signed by: Jose G Garcia MD on 02/12/2025 19:47:23 Dictated By: Jose G Garcia MD Signed By: <Electronically signed by Jose G Garcia MD in OV> 02/12/251946 DD/ 46 TD/TT: 02/12/251946 Lead Pressman: [facility] External Provider IMG CT PROCEDURES Final Result * US PELVIC OVARIAN DOPPLER (02/12/2025 6:32 PM EDT) Anatomical Region Laterality Modality Abdomen Ultrasound 02/12/2025 6:32 PM EDT Narrative 02/13/2025 10:23 AM EDT [place] [address] Ultrasound Report Signed Patient: Radha Marcus MR#: [id number] 4 : 1990 Acct:[id number] Age/Sex: 34 / F ADM Date: 02/12/25 Loc: .ED Attending Dr: Ordering Physician: Ej Welch Date of Service: 02/12/25 Procedure(s): US pelvic ovarian doppler Accession Number(s): [id number] cc: Ej Welch; Fatmata Nance MD CLINICAL HISTORY: left lower abdominal pain US pelvis transabdominal and transvaginal with Doppler Comparison: None provided Findings: Transvaginal and transabdominal scanning performed. Anteverted uterus is 10.4 cm length. Normal myometrium. Endometrium 6 mm thickness. Scattered nabothian cysts. Right ovary 2.8 x 1.4 x 1.6 cm. Left ovary 2.9 x 2.8 x 3.4 cm. Dominant follicle noted. Normal color Doppler of both ovaries. No free fluid. IMPRESSION: No evidence of ovarian torsion. This document has been electronically signed by: Jose G Garcia MD on 02/12/2025 18:32:15 Dictated By: Jose G Garcia MD Signed By: <Electronically signed by Jose G Garcia MD in OV> 02/13/25 1023 DD/ 31 TD/TT: 02/12/251831 Lead Pressman: Procedure Note Donotuseinterpreter, Image - 02/13/[address] [address] Ultrasound Report Signed Patient: Radha Marcus MMR#: [id number] 4 : 1990Acct:[id number] Age/Sex: 34 / FADM Date: 02/12/25 Loc: HO.ED Attending Dr: Ordering Physician: Ej Welch Date of Service: 02/12/25 Procedure(s): US pelvic ovarian doppler Accession Number(s): [id number] cc: Ej Welch; Fatmata Nance MD CLINICAL HISTORY: left lower abdominal pain US pelvis transabdominal and transvaginal with Doppler Comparison: None provided Findings: Transvaginal and transabdominal scanning performed. Anteverted uterus is 10.4 cm length. Normal myometrium. Endometrium 6 mm thickness. Scattered nabothian cysts. Right ovary 2.8 x 1.4 x 1.6 cm. Left ovary 2.9 x 2.8 x 3.4 cm. Dominant follicle noted. Normal color Doppler of both ovaries. No free fluid. IMPRESSION: No evidence of ovarian torsion. This document has been electronically signed by: Jose G Garcia MD on 02/12/2025 18:32:15 Dictated By: Jose G Garcia MD Signed By: <Electronically signed by Jose G Garcia MD in OV> 02/13/25 1023 DD/ 31 TD/TT: 02/12/251831 Lead Pressman: us [facility] External Provider IMG US PROCEDURES Final Result * US Pelvis Transvaginal (02/12/2025 6:32 PM EDT) Anatomical Region Laterality Modality Pelvis Ultrasound 02/12/2025 6:32 PM EDT Narrative 02/12/2025 6:33 PM EDT [address] [address] Ultrasound Report Signed Patient: Radha Marcus MR#: [id number] 4 : 1990 Acct:[id number] Age/Sex: 34 / F ADM Date: 02/12/25 Loc: .ED Attending Dr: Ordering Physician: Ej Welch Date of Service: 02/12/25 Procedure(s): US pelvic and transvaginal Accession Number(s): [id number] cc: Ej Welch; Fatmata Nance MD CLINICAL HISTORY: left lower abdominal pain US pelvis transabdominal and transvaginal with Doppler Comparison: None provided Findings: Transvaginal and transabdominal scanning performed. Anteverted uterus is 10.4 cm length. Normal myometrium. Endometrium 6 mm thickness. Scattered nabothian cysts. Right ovary 2.8 x 1.4 x 1.6 cm. Left ovary 2.9 x 2.8 x 3.4 cm. Dominant follicle noted. Normal color Doppler of both ovaries. No free fluid. IMPRESSION: No evidence of ovarian torsion. This document has been electronically signed by: Jose G Garcia MD on 02/12/2025 18:32:15 Dictated By: Jose G Garcia MD Signed By: <Electronically signed by Jose G Garcia MD in OV> 02/12/251832 DD/ 31 TD/TT: 02/12/251831 Lead Pressman: Procedure Note Donotuseinterpreter, Image - 02/12/[address] [address] Ultrasound Report Signed Patient: Radha Marcus MMR#: [id number] 4 : 1990Acct:[id number] Age/Sex: 34 / FADM Date: 02/12/25 Loc: .ED Attending Dr: Ordering Physician: Ej Welch Date of Service: 02/12/25 Procedure(s): US pelvic and transvaginal Accession Number(s): [id number] cc: Ej Welch; Fatmata Nance MD CLINICAL HISTORY: left lower abdominal pain US pelvis transabdominal and transvaginal with Doppler Comparison: None provided Findings: Transvaginal and transabdominal scanning performed. Anteverted uterus is 10.4 cm length. Normal myometrium. Endometrium 6 mm thickness. Scattered nabothian cysts. Right ovary 2.8 x 1.4 x 1.6 cm. Left ovary 2.9 x 2.8 x 3.4 cm. Dominant follicle noted. Normal color Doppler of both ovaries. No free fluid. IMPRESSION: No evidence of ovarian torsion. This document has been electronically signed by: Jose G Garcia MD on 02/12/2025 18:32:15 Dictated By: Jose G Garcia MD Signed By: <Electronically signed by Jose G Garcia MD in OV> 02/12/251832 DD/ 31 TD/TT: 02/12/251831 Lead Pressman: us [facility] External Provider IMG US PROCEDURES Final Result * (ABNORMAL) Urinalysis, Complete, with Reflex to Culture (02/12/2025 6:29 PM EDT) Color Urine Yellow [facility] Appearance Urine Clear [facility] PH 7.0 5.0 - 9.0 [facility] Glucose Urine UA Negative Negative mg/dL [facility] Urine Blood Negative Negative [facility] Specific Edgar - Urine 1.010 1.005 - 1.025 [facility] Urine Protein Negative Neg-Trace mg/dL [facility] Urine Ketones Negative Negative mg/dL [facility] Nitrite Urine Negative Negative [facility] Leukocyte Esterase Urine Trace(A) Negative [facility] RBC Urine 0-2 0 - 2 /HPF [facility] Urine WBC 0-5 0 - 5 /HPF [facility] Urine Squamous Epithelial Cell 3-5 0 - 2 /HPF [facility] Urine Bacteria None Seen None Seen [facility] Hyaline Casts, Urine 0-2 0 - 2 /LPF [facility] 02/12/2025 6:29 PM EDT 02/12/2025 6:33 PM EDT Narrative [facility] - 02/12/2025 6:50 PM EDT Urine, Clean Catch Generic External Data Provider LAB URINE ORDERAB LES Final Result Performing Organization Address [facility] Co de Phone Number [facility] [address] [place] [address] [phone] * HCG, Qualitative, Urine (02/12/2025 6:28 PM EDT) Pathologist [facility] Urine NEGATIVE NEGATIVE [facility] Comment:This test was develo ped to detect early . Falsenegative results may occur after the 5th - 7th week ofpregnancy when using this test method. If clinicallyindicated, consider a serum hCG. 02/12/2025 6:28 PM EDT 02/12/2025 6:33 PM EDT Generic External Data Provider LAB URINE ORDERAB LES Final Result Performing Organization Address [facility] Co de Phone Number [facility] [address] [place] [phone] * (ABNORMAL) CBC auto differential (02/12/2025 5:11 PM EDT) [facility] White Blood Count 7.6 4.8 - 10.8 X10*3/uL [facility] Red Blood Count 4.19(L) 4.20 - 5.50 X10*6/uL [facility] Hemoglobin 10.1(L) 12.0 - 16.0 g/dl [facility] Hematocrit 32.4(L) 37.0 - 47.0 % [facility] Mean Corpuscular Volume 77.3(L) 80.0 - 98.0 fL [facility] Mean Corpuscular Hemoglobin 24.1(L) 27.0 - 33.0 pg [facility] Mean Corpuscular HGB Conc 31.2 31.0 - 35.0 g/dl [facility] Red Cell Distribution Width 16.7(H) 11.0 - 16.0 % [facility] Platelet Count 375 160 - 400 X10*3/uL [facility] Mean Platelet Volume 9.5 9.4 - 12.3 fL [facility] Neutrophils Percent Auto 61.2 45 - 73 % [facility] Imm Gran Pct Auto 0.3 0.0 - 0.4 % [facility] Lymphocytes Percent Auto 29.5 20 - 40 % [facility] Monocytes Percent Auto 8.1 2 - 11 % [facility] Eosinophils Percent Auto 0.5 0 - 4 % [facility] Basophils Percent Auto 0.4 0 - 2 % [facility] NRBC Pct Auto 0.0 0.0 - 0.2 /100WBC [facility] Neutrophils Absolute Auto 4.7 2.0 - 8.3 x10*3/uL [facility] Imm Gran Abs Auto 0.02 0.00 - 0.03 X10*3/uL [facility] Lymphocytes Absolute Auto 2.3 1.2 - 4.9 X10*3/uL [facility] Monocytes Absolute Auto 0.6 0.1 - 1.2 X10*3/uL [facility] Eosinophils Absolute Auto 0.0 0.0 - 0.4 X10*3/uL [facility] Basophils Absolute Auto 0.0 0.0 - 0.2 X10*3/uL [facility] NRBC Abs Auto 0.000 0.0 - 0.012 X10*3/uL [facility] 02/12/2025 5:11 PM EDT 02/12/2025 5:13 PM EDT us Generic External Data Provider LAB BLOOD ORDERAB LES Final Result [facility] [address] [place] [phone] * (ABNORMAL) Comprehensive Metabolic Panel (02/12/2025 5:11 PM EDT) Sodium 141 135 - 145 mmol/L [facility] Potassium 3.7 3.3 - 5.1 mmol/L [facility] Chloride 110(H) 96 - 108 mmol/L [facility] Carbon Dioxide 24 22 - 29 mmol/L [facility] Anion Gap 11(L) 12 - 20 [facility] Urea Nitrogen (BUN) 8(L) 9 - 16 mg/dL [facility] Creatinine, Serum 0.65 0.5 - 1.4 mg/dL [facility] Creatinine Clr Calc Pharmacy 114.8 [facility] LABS Comment:Provided height and weight: 160.02 cm,73.3 kg.eGFR (calculated from the MDRD study equation) and eCrCl(calculated from the Cockcroft-Gault equation) are based ondifferent parameters and may not yield comparable results.If eCrCl result is absurd, please check patient'sheight/weight. Estimated Glomerular Filt Rate >60 [facility] Comment:Chronic Kidney Disea se: Estimated GFR < 60 mL/min/1.28a5Pkggxs Kidney Disease: Estimated GFR < 15 mL/min/1.73m2 Glucose 80 60 - 115 mg/dL [facility] Calcium 9.1 8.4 - 10.2 mg/dL [facility] Bilirubin, Total 0.3 0.0 - 1.0 mg/dL [facility] Aspartate Amino Transferase 33(H) 5 - 31 U/L [facility] Alanine Aminotransferase 18 0 - 31 U/L [facility] Total Protein 7.6 6.5 - 8.0 g/dL [facility] Albumin Level 4.6 3.5 - 5.0 g/dL [facility] Alkaline Phosphatase 62 39 - 117 U/L [facility] 02/12/2025 5:11 PM EDT 02/12/2025 5:13 PM EDT us Generic External Data Provider LAB BLOOD ORDERAB LES Final Result [facility] [address] [place] [address] [phone] * POCT , urine manually resulted (02/12/2025 4:01 PM EDT) Pathologist [facility] Preg Test, Ur Negative Negative, Indeterminate, None Detected, Invalid, Specimen unsatisfactory for evaluation, Weakly Positive, 2+ Urine 02/12/2025 4:01 PM EDT Con Kaur MD POINT OF CARE TEST ENTER/EDIT OR DERABLES Final Result * (ABNORMAL) POCT urinalysis dipstick manually resulted (02/12/2025 4:01 PM EDT) Pathologist [facility] Color, UA Yellow Clarity, UA Clear Glucose, UA Negative Bilirubin, UA Negative Ketones, UA Negative Spec Grav, UA 1.005 Blood, UA Positive(A) Negative, None Detected Comment:Trace- intact pH, UA 5.5 Protein, UA Negative Urobilinogen, UA 0.2 Leukocytes, UA Trace Negative, Rare, Trace Nitrite, UA Negative Negative, None Detected Urine 02/12/2025 4:01 PM EDT Con Kaur MD POINT OF CARE TEST ENTER/EDIT OR DERABLES Final Result * Hepatitis C Antibody with Reflex to HCV, RNA, Quantitative, Real-Time PCR (04/08/2024 10:20 AM EDT) [facility] Hepatitis C Antibody Nonreactive Nonreactive [facility] Comment:Antibodies to HCV no t detected; does not exclude early acuteHCV infection. Blood Venous blood specimen / Unknown 04/08/2024 10:20 AM EDT 04/08/2024 11:04 AM EDT Fatmata Moran MD LAB BLOOD ORDERAB LES Final Result [facility] [address] [place] [phone] * HIV-1/2 Antigen and Antibodies, Fourth Generation, with Reflexes (04/08/2024 10:20 AM EDT) HIV AB/AG Nonreactive Nonreactive [facility] Comment:HIV-1 p24 Ag and/or HIV-1/HIV-2 Ab not detected.A test result that is nonreactive does not exclude thepossibility of exposure to or infection with HIV-1 and/orHIV-2. Nonreactive results in this assay for individualswith prior exposure to HIV-1 and/or HIV-2 may be due toantigen and antibody levels that are below the limit ofdetection of this assay.The [employer] HIV Ag/Ab Combo assay result andsupplemental assay results should be interpreted inconjunction with the patient's clinical presentation,history and other laboratory results. If the results areinconsistent with clinical evidence, additional testing issuggested to confirm the result. Blood Venous blood specimen / Unknown 04/08/2024 10:20 AM EDT 04/08/2024 11:04 AM EDT Fatmata Moran MD LAB BLOOD ORDERAB LES Final Result [facility] [address] [place] [phone] * HPV mRNA E6/E7 (05/23/2019 10:07 AM EDT) Pathologist [facility] HPV mRNA E6/E7 Not Detected NOT DETECTED [facility] Comment: This test was performed using the APTIMA(R) HPV Assay ([employer] This assay detects E6/E7 viral messenger RNA (mRNA) from 14 high-risk HPV types (16,18,31,33,35,39,45,51, 52,56,58,59,66,68). For additional information please refer to: http://education.DartPoints/faq/FYS903y6 (This link is being provided for informational/ educational purposes only.) The analytical performance characteristics of this assay have been determined by [employer] [place], [place]. The modifications have not been cleared or approved by the FDA. This assay has been validated pursuant to the CLIA regulations and is used for clinical purposes. Test Performed by [facility], [employer] [facility], [address] [place] [address] Rivas Rosenberg M.D., Ph.D., Director of Laboratories , [facility] [id number] Please note: Effective 05/09/2016, HPV testing will be performed using [employer]'s APTIMA test which targets mRNA. Detecting mRNA instead of DNA, as in older methods, offers significant improvements in specificity. 05/23/2019 10:0 7 AM EDT us Janet Lance CNM HISTORICAL/NON ORDERABLE LABS Final Result [facility] Anywhere [address] from Last 3 Months or Most Recently Relevant to Health Maintenance Insurance [facility] < 65 [address] GARZA [id number] [facility] Care Teams Dimpling Machine Operator Relationship Specialty Start Date End Date Fatmata Nance MD [address] [place] [address] PCP - General Internal Medicine 05/29/23 Jordon Rausch FNP [address] [place] [address] Nurse Practitioner Family Medicine 08/01/23
--- OUTSIDE RECORDS SUMMARY | 2025-05-06 09:53 | XMS_ITS | Encounter Summary ---
Author Organization [employer] Address 75 [facility] 7t [place] [address] Care Team Providers Care Film Processing Supervisor Name Role Phone Fatmata Nance MD Primary Care Pro vider Jordon Rausch Unavailable Unavailable Reason for Visit * Reason Comments Med Refill Encounter Details Date Type Department Care Team ([facility] st Contact Info) Description 10/17/2024 Refill [facility]C MED & PEDS [address] [place] [address] Abbi Stockton, ANP [address] [place] [address] Pain in right knee Social History Tobacco [...] [facility] [address] [place] [address] Edith Hammer 05/27/2025 9:30 AM EDT Clinical Support [facility] CHC MED & PEDS [address] [place] [address] Jil Rousseau, SHARMIN [address] [place] [address] documented as of this encounter Visit Diagnoses Diagnosis Pain in right knee documented in this encounter Additional Health Concerns Assessment Noted Time PHQ-9 Depression Total Score: 0 01/18/20 24 3:43 PM EDT documented as of this encounter Care Teams Film Processing Supervisor Relationship Specialty Start Date End Date Fatmata Nance MD [address] [place] [address] PCP - General Internal Medicine 05/29/23 Jordon Rausch FNP [address] [place] [phone] Nurse Practitioner Family Medicine 08/01/23 documented as of this encounter
--- OUTSIDE RECORDS SUMMARY | 2025-05-06 09:53 | XMS_ITS | Encounter Summary ---
Author Organization [employer] Address 75 [facility] 7t [place] [address] Care Team Providers Care Assistant Unit Forester Name Role Phone Fatmata Nance MD Primary Care Pro vider Jordon Rausch Unavailable Unavailable Reason for Visit * Reason Comments Med Refill Encounter Details Date Type Department Care Team (Late st Contact Info) Description 01/03/2024 Refill [facility] MEDICINE [address] [place] [address] Jordon Rausch FNP Posttraumatic stress disorder Social [...] [facility] [address] [place] [address] Edith Hammer 05/27/2025 9:30 AM EDT Clinical Support [facility] CHC MED & PEDS [address] [place] [address] Jil Rousseau, SHARMIN [address] [place] [address] documented as of this encounter Visit Diagnoses Diagnosis Posttraumatic stress disorder documented in this encounter Additional Health Concerns Assessment Noted Time PHQ-9 Depression Total Score: 4 11/23/19 24 3:03 PM EDT documented as of this encounter Care Teams Assistant Unit Forester Relationship Specialty Start Date End Date Fatmata Nance MD [address] [place] [address] PCP - General Internal Medicine 05/29/23 Jordon Rausch FNP [address] [place] [address] Nurse Practitioner Family Medicine 08/01/23 documented as of this encounter
--- OUTSIDE RECORDS SUMMARY | 2025-05-06 09:53 | XMS_ITS | Encounter Summary ---
Author Organization [employer] Address [address] [place] [address] Care Team Providers Care Spooler Operator Name Role Phone Fatmata Nance MD Primary Care Pro vider Jordon Rausch Unavailable Unavailable Reason for Visit * Reason Onset Date Comments Med Refill 07/03/2023 Encounter Details Date Type Department Care Team (Late st Contact Info) Description 07/03/2023 Telephone [facility] MEDICINE [address] [place], [place] [phone] Fatmata Nance MD [address] [place] [address] Med Refill Social History Tobacco Use Types [...] Description 05/15/2025 1:00 PM EDT Office Visit [facility] ADULT DENTAL [address] [place] [address] Edith Hammer 05/27/2025 9:30 AM EDT Clinical Support [facility] CHC MED & PEDS [address] [place] [address] Jil Rousseau, SHARMIN [address] [place] [address] documented as of this encounter Visit Diagnoses Not on filedocumented in this encounter Additional Health Concerns Assessment Noted Time PHQ-9 Depression Total Score: 1 05/23/20 23 8:59 AM EDT documented as of this encounter Care Teams Spooler Operator Relationship Specialty Start Date End Date Fatmata Nance MD [address] [place] [address] PCP - General Internal Medicine 05/29/23 Jordon Rausch FNP [address] [place] [address] Nurse Practitioner Family Medicine 08/01/23 documented as of this encounter
--- OUTSIDE RECORDS SUMMARY | 2025-05-06 09:53 | XMS_ITS | Encounter Summary ---
Author Organization [email or web address] Address 75 [facility] 7t [place] [address] Care Team Providers Care Mastic Floor Layer Name Role Phone Anastasiya Garcia EXECUTIVE CANDIDATE DEVELOPER Primary Care Provider Mahi Fatmata Chin MD Primary Care Pro vider Jordon Rausch Unavailable Unavailable Reason for Visit * Reason Onset Date Comments Med Refill 10/24/2022 Encounter Details Date Type Department Care Team (Late st Contact Info) Description 10/24/2022 Refill [facility] MEDICINE [address] [place] [address] Anastasiya Garcia FNP Pain in right knee; Posttraumatic stress disorder [...] Miscellaneous Notes * Telephone Encounter - Nichole Tami - 10/24/2022 11:11 AM EST Tc from pt requesting med refill for medication clonazePAM (KlonoPIN) 1 MG tablet traMADol (Ultram) 50 MG tablet documented in this encounter Plan of Treatment Upcoming Encounters Date Type Department Care Team (Late st Contact Info) Description 05/15/2025 1:00 PM EDT Office Visit [facility] ADULT DENTAL [address] [place] [address] Edith Hammer 05/27/2025 9:30 AM EDT Clinical Support [facility] CHC MED & PEDS [address] [place] [address] Jil Rousseau, RN [address] [place] [address] documented as of this encounter Visit Diagnoses Diagnosis Pain in right knee Posttraumatic stress disorder documented in this encounter Additional Health Concerns Assessment Noted Time PHQ-9 Depression Total Score: 4 08/23/20 22 2:48 PM EST documented as of this encounter Care Teams Mastic Floor Layer Relationship Specialty Start Date End Date Anastasiya Garcia FNP PCP - General Family Medicine 04/26/22 05/28/23 Fatmata Nance MD [address] [place] [address] PCP - General Internal Medicine 05/29/23 Jordon Rausch FNP [address] [place] [address] Nurse Practitioner Family Medicine 08/01/23 documented as of this encounter
--- OUTSIDE RECORDS SUMMARY | 2025-05-06 09:53 | XMS_ITS | Encounter Summary ---
Author Organization [employer] Address 75 [facility] 7t [place] [address] Care Team Providers Care Cast Shell Grinder Name Role Phone Anastasiya Garcia Primary Care Provider Mahi Fatmata Chin MD Primary Care Pro vider Jordon Rausch Unavailable Unavailable Reason for Visit * Reason Onset Date Comments Med Refill 10/24/2022 Encounter Details Date Type Department Care Team (Late st Contact Info) Description 10/24/2022 Telephone [facility] MEDICINE [address] [place] [address] Anastasiya Garcia FNP Med Refill Social History [...] PM EST Both medications were sent to [facility] Pharmacy on 08/23/22 Qty: 30 with 5 refills * Telephone Encounter - Nichole Garrett - 10/24/2022 11:06 AM EST Tc from pt requesting med refill for medication lurasidone (Latuda) 60 MG tablet hydrOXYzine HCl (Atarax) 50 MG tablet documented in this encounter Plan of Treatment Upcoming Encounters Date Type Department Care Team (Late st Contact Info) Description 05/15/2025 1:00 PM EDT Office Visit [facility] ADULT DENTAL [address] [place] [address] Edith Hammer 05/27/2025 9:30 AM EDT Clinical Support [facility] CHC MED & PEDS [address] [place] [address] Jil Rousseau, RN [address] [place] [address] documented as of this encounter Visit Diagnoses Not on filedocumented in this encounter Additional Health Concerns Assessment Noted Time PHQ-9 Depression Total Score: 4 08/23/20 22 2:48 PM EST documented as of this encounter Care Teams Cast Shell Grinder Relationship Specialty Start Date End Date Anastasiya Garcia FNP PCP - General Family Medicine 04/26/22 05/28/23 Fatmata Nance MD [address] [place] [address] PCP - General Internal Medicine 05/29/23 Jordon Rausch FNP [address] [place] [address] Nurse Practitioner Family Medicine 08/01/23 documented as of this encounter
--- OUTSIDE RECORDS SUMMARY | 2025-05-06 09:53 | XMS_ITS | Encounter Summary ---
Author Organization [employer] Address [address] [place] [address] [place] [address] Care Team Providers Care Dewer Name Role Phone Fatmata Nance MD Primary Care Pro vider Erlinda Rausch Unavailable Unavailable Reason for Visit * Reason Onset Date Comments FYI 09/13/2023 Encounter Details Date Type Department Care Team (Late st Contact Info) Description 09/13/2023 Telephone [facility] MEDICINE [address] [place], [place] [phone] Fatmata Nance MD [address] [place], [place] [phone] FYI Social History Tobacco Use Types Packs/Day [...] Description 05/15/2025 1:00 PM EDT Office Visit [facility] ADULT DENTAL [address] [place] [address] Edith Hammer 05/27/2025 9:30 AM EDT Clinical Support [facility] CHC MED & PEDS [address] [place] [address] Jil Rousseau, SHARMIN [address] [place] [address] documented as of this encounter Visit Diagnoses Not on filedocumented in this encounter Additional Health Concerns Assessment Noted Time PHQ-9 Depression Total Score: 4 08/24/20 23 10:16 AM EST documented as of this encounter Care Teams Dewer Relationship Specialty Start Date End Date Fatmata Nance MD [address] [place] [address] PCP - General Internal Medicine 05/29/23 Erlinda Rausch FNP [address] [place] [address] Nurse Practitioner Family Medicine 08/01/23 documented as of this encounter
== END 2025-05-06 09:26 | disposition home or self-care (01) ==
LOC: HO.HUSH 08:44
PROVIDERS: PCP Student in an Organized Health Care Education/Training Program; Visit Provider Nurse Practitioner Family
DX: N20.0 Calculus of kidney (principal); Z13.9 Encounter for screening, unspecified
CPT/HCPCS: 99203

== ENCOUNTER → 2025-05-06 08:44 | Outpatient (BNVA) | payer OTHER, SELFPAY | PROVIDERS: PCP Student in an Organized Health Care Education/Training Program; Visit Provider Nurse Practitioner Family | DX: N20.0 Calculus of kidney (principal) | CPT/HCPCS: 51798; 81003; 99202 ==

== ENCOUNTER 2025-06-12 11:12 | Outpatient (REF) | payer OTHER, SELFPAY ==
[2025-06-12 13:44] LABS: Hematocrit 34.7 % (37.0-47.0); Hemoglobin 10.7 g/dl (12.0-16.0); Mean Corpuscular HGB Conc 30.8 g/dl (31.0-35.0); Mean Corpuscular Hemoglobin 24.7 pg (27.0-33.0); Mean Corpuscular Volume 80.0 fL (80.0-98.0); NRBC Abs Auto 0.000 X10*3/uL (0.0-0.012); NRBC Pct Auto 0.0 /100WBC (0.0-0.2); Platelet Count 417 X10*3/uL (160-400); Red Blood Count 4.34 X10*6/uL (4.20-5.50); White Blood Count 5.0 X10*3/uL (4.8-10.8)
--- OUTSIDE RECORDS SUMMARY | 2025-06-12 14:20 | XMS_ITS | Encounter Summary ---
Author Organization [employer] Address 75 [facility] 7t [place] [address] Care Team Providers Care Legal Research Analyst Name Role Phone Anastasiya Garcia Primary Care Provider Mahi Fatmata Chin MD Primary Care Pro vider Jordon Rausch Unavailable Unavailable Reason for Visit * Reason Onset Date Comments Med Refill 10/24/2022 Encounter Details Date Type Department Care Team (Late st Contact Info) Description 10/24/2022 Telephone [facility] MEDICINE [address] [place] [address] Anastasiya Garcia FNP Med Refill Social History [...] PM EST Both medications were sent to [facility] Pharmacy on 08/23/22 Qty: 30 with 5 refills * Telephone Encounter - Nichole Tami - 10/24/2022 11:06 AM EST Tc from pt requesting med refill for medication lurasidone (Latuda) 60 MG tablet hydrOXYzine HCl (Atarax) 50 MG tablet documented in this encounter Plan of Treatment Upcoming Encounters Date Type Department Care Team (Late st Contact Info) Description 08/26/2025 9:30 AM EST [facility] [address] [place] [address] Jil Rousseau, SHARMIN [address] [place] [address] documented as of this encounter Visit Diagnoses Not on filedocumented in this encounter Additional Health Concerns Assessment Noted Time PHQ-9 Depression Total Score: 4 08/23/20 22 2:48 PM EST documented as of this encounter Care Teams Legal Research Analyst Relationship Specialty Start Date End Date Anastasiya Garcia FNP PCP - General Family Medicine 04/26/22 05/28/23 Fatmata Nance MD [address] [place] [address] PCP - General Internal Medicine 05/29/23 Jordon Rausch FNP [address] [place] [address] Nurse Practitioner Family Medicine 08/01/23 documented as of this encounter
--- OUTSIDE RECORDS SUMMARY | 2025-06-12 14:20 | XMS_ITS | Encounter Summary ---
Author Organization [employer] Address 75 [facility] 7t [place] [address] Care Team Providers Care Technical Healthcare Consultant Name Role Phone Anastasiya Garcia Primary Care Provider Mahi Fatmata Chin MD Primary Care Pro vider Jordon Rausch Unavailable Unavailable Reason for Visit * Reason Onset Date Comments Med Refill 05/02/2023 Encounter Details Date Type Department Care Team (Late st Contact Info) Description 05/02/[address] [facility] MEDICINE [address] [place] [address] Anastasiya Garcia FNP Med Refill Social History [...] 12:58 PM EDT Medication was sent to [facility] Pharmacy on 11/22/22 #90 with 1 refill to soon for refill. * Telephone Encounter - Nichole Garrett - 05/02/2023 11:59 AM EDT TC from pt requesting med refill for mediation lurasidone (Latuda) 60 MG tablet. documented in this encounter Plan of Treatment Upcoming Encounters Date Type Department Care Team (Late st Contact Info) Description 08/26/2025 9:30 AM EST Clinical Support [facility] MED & PEDS [address] [place] [address] Jil Rousseau, RN [address] [place] [address] documented as of this encounter Visit Diagnoses Not on filedocumented in this encounter Additional Health Concerns Assessment Noted Time PHQ-9 Depression Total Score: 2 02/22/20 8:58 AM EDT documented as of this encounter Care Teams Technical Healthcare Consultant Relationship Specialty Start Date End Date Anastasiya Garcia FNP PCP - General Family Medicine 04/26/22 05/28/23 Fatmata Nance MD [address] [place] [address] PCP - General Internal Medicine 05/29/23 Jordon Rausch FNP [address] [place] [address] Nurse Practitioner Family Medicine 08/01/23 documented as of this encounter
--- OUTSIDE RECORDS SUMMARY | 2025-06-12 14:20 | XMS_ITS | Encounter Summary ---
Author Organization [employer] Address 75 [facility] 7t [place] [address] Care Team Providers Care Technical Sales Manager Name Role Phone Fatmata Nance MD Primary Care Pro vider Jordon Rausch Unavailable Unavailable Reason for Visit * Reason Comments Med Refill Encounter Details Date Type Department Care Team (Late st Contact Info) Description 01/03/[address] [facility] MEDICINE [address] [place] [address] Jordon Rausch FNP Posttraumatic stress disorder Social [...] Description 08/26/2025 9:30 AM EST Clinical Support [facility] MED & PEDS [address] [place] [address] Jil Rousseau, RN [address] [place] [address] documented as of this encounter Visit Diagnoses Diagnosis Posttraumatic stress disorder documented in this encounter Additional Health Concerns Assessment Noted Time PHQ-9 Depression Total Score: 4 11/23/19 24 3:03 PM EDT documented as of this encounter Care Teams Technical Sales Manager Relationship Specialty Start Date End Date Fatmata Nance MD [address] [place] [address] PCP - General Internal Medicine 05/29/23 Jordon Rausch FNP [address] [place] [address] Nurse Practitioner Family Medicine 08/01/23 documented as of this encounter
--- OUTSIDE RECORDS SUMMARY | 2025-06-12 14:20 | XMS_ITS | Encounter Summary ---
Author Organization [employer] Address [address] [place] [address] [place] [address] Care Team Providers Care Neurology Technologist Name Role Phone Anastasiya Garcia Primary Care Provider Mahi Fatmata Chin MD Primary Care Pro vider Jordon Rausch Unavailable Unavailable Encounter Details Date Type Department Care Team (Latest Contact Info) Description 01/07/[address] [facility] CONVERSIONS Dental, Provider, DDS Social History [...] 08/26/2025 9:30 AM EST Clinical Support [facility] MED & PEDS [address] [place] [address] Jil Rousseau, SHARMIN [address] [place] [address] documented as of this encounter Visit Diagnoses Not on filedocumented in this encounter Care Teams Neurology Technologist Relationship Specialty Start Date End Date Anastasiya Garcia FNP PCP - General Family Medicine 04/26/22 05/28/23 Fatmata Nance MD [address] [place] [address] PCP - General Internal Medicine 05/29/23 Jordon Rausch FNP [address] [place] [address] Nurse Practitioner Family Medicine 08/01/23 documented as of this encounter
--- OUTSIDE RECORDS SUMMARY | 2025-06-12 14:20 | XMS_ITS | Encounter Summary ---
Author Organization [employer] Address 75 [facility] 7t [place] [address] Care Team Providers Care Hot Blast Worker Name Role Phone Fatmata Nance MD Primary Care Pro vider Jordon Rausch Unavailable Unavailable Reason for Visit * Reason Comments Med Refill Encounter Details Date Type Department Care Team ([facility] st Contact Info) Description 10/17/2024 Refill [facility] CHC MED & PEDS [address] [place] [address] Abbi Stockton, ANP [address] [place] [address] Pain in right knee Social History Tobacco [...] Clinical Support [facility] MED & PEDS [address] [place] [address] Jil Rousseau RN [address] [place] [address] documented as of this encounter Visit Diagnoses Diagnosis Pain in right knee documented in this encounter Additional Health Concerns Assessment Noted Time PHQ-9 Depression Total Score: 0 01/18/20 24 3:43 PM EDT documented as of this encounter Care Teams Hot Blast Worker Relationship Specialty Start Date End Date Fatmata Nance MD [address] [place] [address] PCP - General Internal Medicine 05/29/23 Jordon Rausch FNP [address] [place] [address] Nurse Practitioner Family Medicine 08/01/23 documented as of this encounter
--- OUTSIDE RECORDS SUMMARY | 2025-06-12 14:20 | XMS_ITS | Encounter Summary ---
Author Organization [employer] Address 75 [facility] 7t [place] [address] Care Team Providers Care Analytical Laboratory Technician Name Role Phone Fatmata Nance MD Primary Care Pro vider Jordon Rausch Unavailable Unavailable Reason for Visit * Reason Comments Med Refill Encounter Details Date Type Department Care Team (Late st Contact Info) Description 04/07/2024 Refill [facility] MEDICINE [address] [place] [address] Jordon Rausch FNP Posttraumatic stress disorder Social [...] Description 08/26/2025 9:30 AM EST Clinical Support [facility] MED & PEDS [address] [place] [address] Jil Rousseau, SHARMIN [address] [place] [address] documented as of this encounter Visit Diagnoses Diagnosis Posttraumatic stress disorder documented in this encounter Additional Health Concerns Assessment Noted Time PHQ-9 Depression Total Score: 0 01/18/20 24 3:43 PM EDT documented as of this encounter Care Teams Analytical Laboratory Technician Relationship Specialty Start Date End Date Fatmata Nance MD [address] [place] [address] PCP - General Internal Medicine 05/29/23 Jordon Rausch FNP [address] [place] [address] Nurse Practitioner Family Medicine 08/01/23 documented as of this encounter
--- OUTSIDE RECORDS SUMMARY | 2025-06-12 14:20 | XMS_ITS | Encounter Summary ---
Author Organization [employer] Address [address] [place] [address] [place] [address] Care Team Providers Care Engine Generator Assembler Name Role Phone Anastasiya Garcia Primary Care [...] Description 08/26/2025 9:30 AM EST Clinical Support [facility] P[facility]S [address] [place] [address] Jil Rousseau, SHARMIN [address] [place] [address] documented as of this encounter Visit Diagnoses Not on filedocumented in this encounter Care Teams Engine Generator Assembler Relationship Specialty Start Date End Date Anastasiya Garcia FNP PCP - General Family Medicine 04/26/22 05/28/23 Fatmata Nance MD [address] [place] [phone] PCP - General Internal Medicine 05/29/23 Jordon Rausch FNP [address] [place] [phone] Nurse Practitioner Family Medicine 08/01/23 documented as of this encounter
--- OUTSIDE RECORDS SUMMARY | 2025-06-12 14:20 | XMS_ITS | Encounter Summary ---
Author Organization [employer] Address [address] [place] [address] [place] [address] Care Team Providers Care Hooker Up Name Role Phone Fatmata Nance MD Primary Care Pro vider Jordon Rausch Unavailable Unavailable Reason for Visit * Reason Onset Date Comments Med Refill 06/19/2024 Encounter Details Date Type Department Care Team (Late st Contact Info) Description 06/19/2024 Telephone [facility] MEDICINE [address] [place], [place] [phone] Fatmata Nance MD [address] [place] [address] Med Refill Social History Tobacco Use Types [...] 50 MG tablet To be sent to: [facility] documented in this encounter Plan of Treatment Upcoming Encounters Date Type Department Care Team (Late st Contact Info) Description 08/26/2025 9:30 AM EST Clinical Support [facility] MED & PEDS [address] [place] [address] Jil Rousseau, SHARMIN [address] [place] [address] documented as of this encounter Visit Diagnoses Not on filedocumented in this encounter Additional Health Concerns Assessment Noted Time PHQ-9 Depression Total Score: 0 01/18/20 24 3:43 PM EDT documented as of this encounter Care Teams Hooker Up Relationship Specialty Start Date End Date Fatmata Nance MD [address] [place] [address] PCP - General Internal Medicine 05/29/23 Jordon Rausch FNP [address] [place] [address] Nurse Practitioner Family Medicine 08/01/23 documented as of this encounter
--- OUTSIDE RECORDS SUMMARY | 2025-06-12 14:20 | XMS_ITS | Encounter Summary ---
Author Organization [employer] Address [address] [place] [address] [place] [address] Care Team Providers Care Fishing Line Winding Machine Operator Name Role Phone Anastasiya Garcia Primary Care Provider Mahi Fatmata Chin MD Primary Care Pro vider Jordon Rausch Unavailable Unavailable Encounter Details Date Type Department Care Team (Latest Contact Info) Description 06/05/2020 Abstract [facility] CONVERSIONS Dental, Provider, DDS Social [...] Description 08/26/2025 9:30 AM EST Clinical Support [facility] MED & PEDS [address] [place] [address] Jil Rousseau, SHARMIN [address] [place] [address] documented as of this encounter Visit Diagnoses Not on filedocumented in this encounter Care Teams Fishing Line Winding Machine Operator Relationship Specialty Start Date End Date Anastasiya Garcia FNP PCP - General Family Medicine 04/26/22 05/28/23 Fatmata Nance MD [address] [place] [address] PCP - General Internal Medicine 05/29/23 Jordon Rausch FNP [address] [place] [address] Nurse Practitioner Family Medicine 08/01/23 documented as of this encounter
--- OUTSIDE RECORDS SUMMARY | 2025-06-12 14:20 | XMS_ITS | Clinical Summary ---
Author Organization [employer] Address [address] [facility] 7[address] [place] [address] Care Team Providers Care Logistics Loss Prevention Manager Name Role Phone Fatmata Nance MD [...] AFTER USING. 13 g 02/21/20 25 Active naloxone (Narcan) 4 mg/0.1 [...] HOURS NEEDED FOR SEVERE PAIN 84 tablet 05/21/20 25 Active pantoprazole (ProtoNix) 20 MG EC tablet TAKE 1 TABLET BY MOUTH ONCE DAILY 90 tablet 05/21/20 25 Active pantoprazole (ProtoNix) 20 MG EC tablet TAKE 1 TABLET BY MOUTH EVERY DAY 90 tablet 02/21/20 25 2024 Discontinued traMADol (Ultram) 50 MG tabletIndicatio ns:Pain in right knee TAKE 1 TABLET BY MOUTH EVERY 8 HOURS NEEDED FOR SEVERE PAIN 84 tablet 04/18/20 25 2024 Discontinued Active Problems Problem Noted [...] retiring, patient will be referred to new [facility] psychiatric prescriber. Any issues or concerns call [facility]. All her questions were answered, and [...] Encounters Date Type Department Care Team Description 05/27/2025 9:30 AM EDT Clinical Support [facility] MED & PEDS [address] [place] [address] Jil Rousseau, RN Long-term current use of opiate analgesic (Primary Dx) 05/27/2025 Travel 05/21/2025 Refill [facility] MED & PEDS [address] [place] [address] Fatmata Nance MD Pain in right knee 04/24/2025 9:45 AM EDT Office Visit [facility] MEDICINE [address] [place] [address] Fatmata Nance MD Other acute pulmonary embolism without acute cor pulmonale (CMS/HCC) (Primary Dx); Kidney stones; Health care maintenance 04/24/2025 Travel 04/18/2025 Refill [facility] MED [facility] PEDS [address] [place] [address] Fatmata Nance MD Pain in right knee 03/21/2025 Refill [facility] MED [facility] PEDS [address] [place] [address] Jil Rousseau RN Pain in right knee 03/21/2025 Telephone [facility] MED & PEDS [address] [place], [place] [phone] Fatmata Nance MD Med Refill from Last 3 Months Immunizations Immunization Administration Dates Next Due DTaP, 5 pertussis antigens 11/24/1992,,09/09/1989,12/20,1988 Hep B, Adolescent or Pediatric 04/12/2000,1998,09/28/1998 Hib ([facility]) 02/07/1990 Influenza injectable quadriv alent IIV4 with [...] Upcoming Encounters Date Type Department Care Team ([facility] st Contact Info) Description 08/26/2025 9:30 AM EST Clinical Support [facility] MED & PEDS [address] [place] [address] Jil Rousseau, RN [address] [place] [address] Health Maintenance Due Date Last Done Comments [...] Procedure Name Priority Date/Time Associated Diagnosis Comments HEMOGLOBIN A1C Routine 06/12/2025 11:20 AM EDT Health care maintenance CBC Routine 06/12/2025 11:20 AM EDT Health care maintenance POCT ASH-14 URINE DRUG SCREEN Routine 05/27/2025 9:43 AM EDT Long-term current use of opiate analgesic PROPHYLAXIS - ADULT Routine 11/07/2024 1 :00 [...] Relevant to Health Maintenance Results * (ABNORMAL) CBC (06/12/2025 11:20 AM EDT) White Blood Count 5.0 4.8 - 10.8 X10*3/uL [facility] Red Blood Count 4.34 4.20 - 5.50 X10*6/uL [facility] Hemoglobin 10.7(L) 12.0 - 16.0 g/dl [facility] Hematocrit 34.7(L) 37.0 - 47.0 % [facility] Mean Corpuscular Volume 80.0 80.0 - 98.0 fL [facility] Mean Corpuscular Hemoglobin 24.7(L) 27.0 - 33.0 pg [facility] Mean Corpuscular HGB Conc 30.8(L) 31.0 - 35.0 g/dl [facility] Red Cell Distribution Width 16.4(H) 11.0 - 16.0 % [facility] Platelet Count 417(H) 160 - 400 X10*3/uL [facility] Mean Platelet Volume 10.0 9.4 - 12.3 fL [facility] NRBC Pct Auto 0.0 0.0 - 0.2 /100WBC [facility] NRBC Abs Auto 0.000 0.0 - 0.012 X10*3/uL [facility] Blood Venous blood specimen / Unknown 06/12/2025 11:20 AM EDT 06/12/2025 1:25 PM EDT us Fatmata Moran MD LAB BLOOD ORDERAB LES Final Result Performing Organization Address [facility] de Phone Number [facility] [address] [place] [phone] * Hemoglobin A1c (06/12/2025 11:20 AM EDT) Hemoglobin A1c 5.4 <6.0 % [facility] Comment:Hemoglobin A1C Refer ence Range Adults: 4.8 - 6.0 % Non diabetic: < 6.0 % Goal: < 7.0 %Additional Action Suggested: > 8.0 %Note: Hemoglobin A1c results are invalid for patients with abnormal amounts of HbF. Blood transfusions may impact the HbA1c concentration in the patient sample. Estimated Average Glucose 108 mg/dL [facility] Comment:eAG = Estimated ave rage glucose which is %A1C expressed asaverage glucose, using the formula of the J4S-KcyipzvCdgmljx Glucose study (ADAG), Diabetes Care, Vol.31,#8,Mar. 2007 Blood Venous blood specimen / Unknown 06/12/2025 11:20 AM EDT 06/12/2025 1:25 PM EDT us Fatmata Moran MD LAB BLOOD ORDERAB LES Final Result Performing Organization Address [facility] Co de Phone Number [facility] [address] [place] [phone] * (ABNORMAL) POCT ASH-14 Urine Drug Screen (05/27/2025 9:43 AM EDT) THC Positive(A) Negative Cocaine Screen, [...] obtained by clean catch procedure / Unknown 05/27/2025 9:43 AM EDT Narrative Jil Rousseau RN - 05/27/2025 9:43 AM EDT . Internal Pass Control Lot# [id number] Exp: 06-27-26 Fatmata Moran MD POINT OF CARE JAMES T ENTER/EDIT ORDERABLES Final Result * Hepatitis C Antibody with Reflex to HCV, RNA, Quantitative, Real-Time PCR (04/08/2024 10:20 AM EDT) [facility] Hepatitis C Antibody Nonreactive Nonreactive [facility] Comment:Antibodies to HCV no t detected; does not exclude early acuteHCV infection. Blood Venous blood specimen / Unknown 04/08/2024 10:20 AM EDT 04/08/2024 11:04 AM EDT us Fatmata Moran MD LAB BLOOD ORDERAB LES Final Result [facility] [address] [place] [phone] * HIV-1/2 Antigen and Antibodies, Fourth Generation, with Reflexes (04/08/2024 10:20 AM EDT) HIV AB/AG Nonreactive Nonreactive [facility] Comment:HIV-1 p24 Ag and/or HIV-1/HIV-2 Ab not detected.A test result that is nonreactive does not exclude thepossibility of exposure to or infection with HIV-1 and/orHIV-2. Nonreactive results in this assay for individualswith prior exposure to HIV-1 and/or HIV-2 may be due toantigen and antibody levels that are below the limit ofdetection of this assay.The [employer] HIV Ag/Ab Combo assay result andsupplemental assay results should be interpreted inconjunction with the patient's clinical presentation,history and other laboratory results. If the results areinconsistent with clinical evidence, additional testing issuggested to confirm the result. Blood Venous blood specimen / Unknown 04/08/2024 10:20 AM EDT 04/08/2024 11:04 AM EDT Fatmata Moran MD LAB BLOOD ORDERAB LES Final Result [facility] [address] [place] [phone] * HPV mRNA E6/E7 (05/23/2019 10:07 AM EDT) Pathologist [facility] HPV mRNA E6/E7 Not Detected NOT DETECTED [facility] Comment: This test was performed using the APTIMA(R) HPV Assay ([employer] This assay detects E6/E7 viral messenger RNA (mRNA) from 14 high-risk HPV types (16,18,31,33,35,39,45,51, 52,56,58,59,66,68). For additional information please refer to: http://education.Primocare/faq/KNA645c8 (This link is being provided for informational/ educational purposes only.) The analytical performance characteristics of this assay have been determined by [facility] [place], [place]. The modifications have not been cleared or approved by the FDA. This assay has been validated pursuant to the CLIA regulations and is used for clinical purposes. Test Performed by [employer] [facility] [place], [address] [place] [address] Rivas Rosenberg M.D., Ph.D., Director of Laboratories , CLIA [id number] Please note: Effective 05/09/2016, HPV testing will be performed using [employer]s APTIMA test which targets mRNA. Detecting mRNA instead of DNA, as in older methods, offers significant improvements in specificity. 05/23/2019 10:0 7 AM EDT us Janet Lance ARUNM HISTORICAL/NON ORDERABLE LABS Final Result [facility] [address] from Last 3 Months or Most Recently Relevant to Health Maintenance Insurance [facility] [address] [id number] [facility] Care Teams Logistics Loss Prevention Manager Relationship Specialty Start Date End Date Fatmata Nance MD [address] [place], [place] [phone] PCP - General Internal Medicine 05/29/23 Jordon Rausch FNP [address] [place] [address] Nurse Practitioner Family Medicine 08/01/23
--- OUTSIDE RECORDS SUMMARY | 2025-06-12 14:21 | XMS_ITS | Encounter Summary ---
Author Organization [employer] Address [address] [place] [address] [place] [address] Care Team Providers Care Group Leader Semiconductor Testing Name Role Phone Fatmata Nance MD Primary Care Pro vider Erlinda Rausch Unavailable Unavailable Reason for Visit * Reason Onset Date Comments FYI 09/13/2023 Encounter Details Date Type Department Care Team (Late st Contact Info) Description 09/13/2023 Telephone [facility] MEDICINE [address] [place], [place] [phone] Fatmata Nance MD [address] [place], [place] [phone] FY Social History Tobacco Use Types Packs/Day Years [...] Description 08/26/2025 9:30 AM EST Clinical Support [facility] MED & PEDS [address] [place] [address] Jil Rousseau RN [address] [place] [address] documented as of this encounter Visit Diagnoses Not on filedocumented in this encounter Additional Health Concerns Assessment Noted Time PHQ-9 Depression Total Score: 4 08/24/20 10:16 AM EST documented as of this encounter Care Teams Group Leader Semiconductor Testing Relationship Specialty Start Date End Date Fatmata Nance MD [address] [place] [address] PCP - General Internal Medicine 05/29/23 Erlinda Rausch FNP [address] [place] [address] Nurse Practitioner Family Medicine 08/01/23 documented as of this encounter
--- OUTSIDE RECORDS SUMMARY | 2025-06-12 14:21 | XMS_ITS | Data Portability ---
Author Organization [place] [employer] [facility] Address [address] [place] [phone] Care Team Providers Care Crystallography Teacher Name Role Phone HIM CCA OTHER Assessment No assessment recorded. Plan of Treatment Reminders Order Date Submit Date Provider Last Modified By Organization Details Last Modified Time Details Appointments None recorded. Lab culture, urine 2022 023 [place] [facility] (Centralized Electronic Ordering - All Locations), Patient Can Go To The Location Of Their Choice, [id number] 3 16:40:03 culture, urine 2022 023 [place] [facility] (Centralized Electronic Ordering - All Locations), Patient Can Go To The Location Of Their Choice, [id number] 3 14:55:29 Referral None recorded. Procedures None recorded. Surgeries None recorded. Imaging None recorded. Medication Orders Bactrim DS 800 mg-160 mg tablet 2022 023 [id number], [address] [place], [address], 14:18:04 levofloxaci n 500 mg tablet 2022 023 [id number], [address] [place], [address], 3 12:55:48 Patient TargetsNo targets recorded. Patient InstructionsNo instructions recorded. Reason for Referral None Reported. Results Created Date Observation Date Name Description Value Unit Range Abnormal Flag Note LastModifiedBy Organization Detail LastModifiedTime 03/13/20 23 03/13/2023 URINE CULTU RE specimen description URINE Not Available [facility] (Centralized Electronic Ordering - All Locations) Patient Can Go To The Location Of Their Choice, [id number] 03/15/2023 14:55:29 03/13/2003/13/2023 URINE CULTU RE special [...] The Location Of Their Choice, 03/15/2023 14:55:29 08/17/2008/17/2023 URINE CULTU RE specimen description URINE Not [...] Go To The Location Of Their Choice, [id number] 08/18/2023 16:40:03 08/17/20 23 08/18/2023 URINE CULTU RE report status FINAL 2022 Not Available [facility] (Centralized Electronic Ordering - All Locations) Patient Can Go To The Location Of Their Choice, [id number] 08/18/2023 16:40:03 Result Notes None recorded. Medical [...] Not available Not available Not available 06/25/2024 [id number] SNOMED Not Available [facility] - production [...] blood by Pulse oximetry Respiratory rate Systolic And Diastolic Provider Name and Address Organization Details Last Updated DateTime 3 [address] g 97.4 [degF] 157.48 cm 80 /min 98 % 98 % 14 /min 124/84 mm[Hg] Not Available [employer] 3 12:48:59 Date Recorded Oxygen saturation Oxygen saturation in Arterial blood by Pulse oximetry Respiratory rate Heart rate Systolic And Diastolic Provider Name and Address Organization Details Last Updated DateTime 3 99 % 99 % 16 /min 69 /min 138/72 mm[Hg] Not Available [employer] 3 14:12:01 Social History None recorded. Functional Status None recorded. Mental Status None recorded. Family History Nothing Reported. Medical History No medical history recorded. Gynecological HistoryNo gynecological history recorded. Obstetrics History GPAL:G 0 P 0 0 0 0 Past Encounters Encounter ID Performer Location Encounter Start Date Encounter Closed Date Diagnosis/Indication Diagnosis SNOMED-CT Code Diagnosis ICD10 Code Diagnosis IMO Codes Diagnosis Note [id number] Yasir Childers MD [facility] - [facility] [address] [place] [phone] 03/13/2023 12:48:52 03/14/2023 10:43:44 Recurrent urinary tract infection [id number] N39.0 This 32-year-ol d female was treated for a UTI in January with Bactrim. Her symptoms resolved but recurred over the past five days with dysuria and frequency, but no fever. I ordered a U/C and treatment with Levaquin 500 mg daily for seven days. She will follow-up with her PCP. The patient agreed with this plan. [id number] Yue Garcia MD Main - [facility] [address] [place] [phone] 08/17/2023 14:10:21 08/19/2023 17:13:51 Urinary symptoms [id number] R39.9 33 year old female being evaluated [...] assessment and plan as documented by the 1 year olds preschool teacher. I provided real-time medical direction for this [...] Recorded Advance Directives Directive None Recorded Payers Insurance Date Sequence Insurance Name Policy Number Policy Mei Covered Member ID Mei Member ID Guarantor Name 10/22/2023 1 [facility] - DOS ON OR AFTER 2022 - DUAL ELIGIBLE - CUSTODIAL OPTIONS AND ONE CARE (MEDICARE REPLACEMENT/ADV ANTAGE - HMO) Radha Marcus [id number] Radha M Marcus Notes Date Note Type Note Provider Name and Address Organization Details Recorded Time 03/13/2023 text/html ROS as noted in the HPI HPI: Patient with history of GERD, PTSD,Opioid use. Treated for UTI symptoms on 02/27/23. Lab culture shows> 100K Klebsiella pneumoniae, > 100K Group B strep. [facility] report order # [id number]. Completed BID Bactrim x 3 days. Now with recurrent symptoms and painful urination. Burning, frequency and vaginal itching. No fever noted. ................... ................... ................... ................... ................... ................... ................... ........ [facility] Nursing Assessment: Comments: Review request no further information needed to process visit Yasir Childers MD [address] [place] [address],[address], [place], [phone], [employer] 03/13/2023 12:56:12 08/17/2023 text/html CRC Nurse Triage [...] ................... ................... ................... ................... ................... ................... ........ 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 POC urinalysis performed, results sent to [facility]. Culture performed at [facility] orders, to be dropped off at local laboratory. Prescription to patient s pharmacy of choice to be made by [facility]. Red flags discussed with patient. Patient encouraged to seek medical attention should she become further symptomatic. Flatbed Truck Driver Allergies: Ibuprofen, Morphine, Penicillin ................... ................... ................... ................... ................... ................... ................... ........ Disposition: Fulfilled Yue Garcia MD [address] [facility],[address], [place], [phone], [employer] 08/17/2023 14:36:20 OBGyn Episode No OBEpisode recorded.
--- OUTSIDE RECORDS SUMMARY | 2025-06-12 14:21 | XMS_ITS | Encounter Summary ---
Author Organization [employer] Address [address] [place] [address] Care Team Providers Care Aerial Photographer Name Role Phone Fatmata Nance MD Primary Care Pro vider Jordon Rausch Unavailable Unavailable Reason for Visit * Reason Onset Date Comments Med Refill 07/03/2023 Encounter Details Date Type Department Care Team (Late st Contact Info) Description 07/03/2023 Telephone [facility] MEDICINE [address] [place], [place] [phone] Fatmata Nance MD [address] [place] [address] Med Refill Social History Tobacco Use Types [...] Description 08/26/2025 9:30 AM EST Clinical Support [facility] PEDS [address] [place] [address] Jil Rousseau, RN [address] [place], [place] [phone] documented as of this encounter Visit Diagnoses Not on filedocumented in this encounter Additional Health Concerns Assessment Noted Time PHQ-9 Depression Total Score: 1 05/23/20 8:59 AM EDT documented as of this encounter Care Teams Aerial Photographer Relationship Specialty Start Date End Date Fatmata Nance MD [address] [place] [address] PCP - General Internal Medicine 05/29/23 Jordon Rausch FNP [address] [place] [address] Nurse Practitioner Family Medicine 08/01/23 documented as of this encounter
--- OUTSIDE RECORDS SUMMARY | 2025-06-12 14:21 | XMS_ITS | Encounter Summary ---
Author Organization [employer] Address [address] [place] [address] Care Team Providers Care Loom Doffer Name Role Phone Anastasiya Garcia TAKER OUT Primary Care Provider Mahi Fatmata Chin MD Primary Care Pro vider Jordon Rausch Unavailable Unavailable Reason for Visit * Reason Onset Date Comments Med Refill 10/24/2022 Encounter Details Date Type Department Care Team (Late st Contact Info) Description 10/24/2022 Refill [facility] MEDICINE [address] [place] [address] Anastasiya Garcia FNP Pain in right knee; [...] Support [facility] [address] [place] [address] Jil Rousseau, RN [address] [place] [address] documented as of this encounter Visit Diagnoses Diagnosis Pain in right knee Posttraumatic stress disorder documented in this encounter Additional Health Concerns Assessment Noted Time PHQ-9 Depression Total Score: 4 08/23/20 22 2:48 PM EST documented as of this encounter Care Teams Loom Doffer Relationship Specialty Start Date End Date Anastasiya Garcia FNP PCP - General Family Medicine 04/26/22 05/28/23 Fatmata Nance MD [address] [place] [address] PCP - General Internal Medicine 05/29/23 Jordon Rausch FNP [address] [place] [address] Nurse Practitioner Family Medicine 08/01/23 documented as of this encounter
[2025-06-12 14:29] LABS: Alanine Aminotransferase 13 U/L (0-31); Albumin Level 4.7 g/dL (3.5-5.0); Alkaline Phosphatase 76 U/L (39-117); Anion Gap 10 (12-20); Aspartate Amino Transferase 22 U/L (5-31); Blood Urea Nitrogen 11 mg/dL (9-16); Calcium 9.2 mg/dL (8.4-10.2); Carbon Dioxide 26 mmol/L (22-29); Chloride 108 mmol/L (96-108); Cholesterol 165 mg/dL (<200); Estimated Glomerular Filt Rate > 60; Ferritin 7 ng/mL (10-122); HDL Cholesterol 42 mg/dL (>40); Iron 21 mcg/dL (30-160); Percent Iron Saturation 6 % (15-50); Potassium 4.3 mmol/L (3.3-5.1); Sodium 140 mmol/L (135-145); Total Iron Binding Capacity 362 mcg/dL (228-428); Total Protein 7.6 g/dL (6.5-8.0); Triglycerides 79 mg/dL (<150); Unsaturated Iron Binding 341 ug/dL
[2025-06-13 03:18] LABS: Syphilis Screen Nonreactive (Nonreactive)
[2025-06-13 03:39] LABS: HBsAGNum1 0.49 S/CO (0.00-0.99); HIV Num 1 0.05 S/CO (0.00-0.99); Hepatitis B Surface Antigen Negative (Negative); ~HepC Num1 0.09 S/CO (0.00-0.79); ~Hepatitis C Antibody Nonreactive (Nonreactive)
== END 2025-06-12 11:13 | disposition home or self-care (01) ==
LOC: HO.HHCL 11:12
PROVIDERS: PCP Student in an Organized Health Care Education/Training Program; Visit Provider Student in an Organized Health Care Education/Training Program
DX: Z00.00 Encounter for general adult medical examination without abnormal findings (principal); Z11.4 Encounter for screening for human immunodeficiency virus [HIV]; Z11.59 Encounter for screening for other viral diseases; Z13.0 Encounter for screening for diseases of the blood and blood-forming organs and certain disorders involving the immune mechanism; Z13.6 Encounter for screening for cardiovascular disorders; Z13.1 Encounter for screening for diabetes mellitus; Z13.29 Encounter for screening for other suspected endocrine disorder
CPT/HCPCS: 36415; 80053; 80061; 82728; 83036; 83540; 84443; 85027; 86780; 86803; 87340; 87389